=== PATIENT | male | born 1940 | race Caucasian/White ===

== ENCOUNTER 2018-08-09 08:50 | Emergency (ER) | payer MEDICARE ==
--- NOTE | 2018-08-09 09:04 | EDM.PDOC ---
ED HPI GENERAL MEDICAL PROBLEM - General Chief Complaint: Head Injury Stated Complaint: FELL IN PARKING LOT Time Seen by Provider: 08/09/18 11:04 - History of Present Illness INITIAL COMMENTS - FREE TEXT/NARRATIVE: HISTORY AND PHYSICAL: History of present illness: Patient's a 77-year-old male history of dementia who presents status post fall which he missed a step falling and striking his head and face he sustained multiple abrasions and contusions there is no loss consciousness he denies any head or neck pain although exam is somewhat limited. Review of systems: As per history of present illness and below otherwise all systems reviewed and negative. Past medical history: As per history of present illness and as reviewed below otherwise noncontributory. Surgical history: As per history of present illness and as reviewed below otherwise noncontributory. Social history: No reported history of drug or alcohol abuse. Family history: As per history of present illness and as reviewed below otherwise noncontributory. Physical exam: HEENT: Patient has multiple abrasions and contusions of his midface., normocephalic, pupils reactive, negative for conjunctival pallor or scleral icterus, mucous membranes moist, throat clear, neck supple, nontender, trachea midline. Lungs: Clear to auscultation, breath sounds equal bilaterally, chest nontender. Heart: S1S2, regular, negative for clicks, rubs, or JVD. Abdomen: Soft, nondistended, nontender. Negative for masses or hepatosplenomegaly. Negative for costovertebral tenderness. Pelvis: Stable nontender. Genitourinary: Deferred. Rectal: Deferred. Extremities: Atraumatic, negative for cords or calf pain. Neurovascular unremarkable. Neuro: Awake, alert, follows commands and moves all extremities limited procedure nonfocal exam. Diagnostics: CBC CMP troponin PT/INR chest x-ray CT brain C-spine and facial bones Therapeutics: None Impression: #1 history of Alzheimer's disease #2 observation status post fall #3 head trauma with facial abrasions/contusions Definitive disposition and diagnosis as appropriate pending reevaluation and review of above. - Related Data Allergies Allergy/AdvReac Type Severity Reaction Status Date / Time codeine Allergy Other Verified 08/09/18 09:05 Home Meds: Home Meds . [No Known Home Meds] 08/09/18 [History] ED ROS GENERAL - Review of Systems Review Of Systems: ROS reveals no pertinent complaints other than HPI. ED EXAM, GENERAL - Physical Exam Exam: See Below (The dictation) Course - Vital Signs Text/Narrative:: I had a lengthy discussion with patient and family under the circumstances it'd been decided that no significant medical treatment or intervention is desired at this point or in the near future they are working with social service for placement and dementia care. Last Recorded V/S: Last Vital Signs Temp 36.3 C 08/09/18 08:59 Pulse 117 H 08/09/18 08:59 Resp 18 08/09/18 08:59 BP 125/71 08/09/18 08:59 Pulse Ox 94 L 08/09/18 08:59 - Orders/Labs/Meds Orders: Active Orders 24 hr Category Date Time Status Cardiac Monitoring [RC] . DIRECTED Care 08/09/18 09:05 Active EKG 12 Lead [EKG Documentation Completion] [RC] STAT Care 08/09/18 09:03 Active Max Facial Sinus wo Cont [CT] Stat Exams 08/09/18 09:03 Taken UA RFX BRODY AND CULT IF INDIC [URIN] Stat Lab 08/09/18 09:03 Ordered Labs: Laboratory Tests 08/09/18 08/09/18 08/09/18 Range/Units 09:00 09:00 09:00 WBC 4.47 (4.0-11.0) K/uL RBC 4.58 (4.50-5.90) M/uL Hgb 14.2 (13.0-17.0) g/dL Hct 40.7 (38.0-50.0) % MCV 88.9 (80.0-98.0) fL MCH 31.0 (27.0-32.0) pg MCHC 34.9 (31.0-37.0) g/dL RDW Std Deviation 53.9 (28.0-62.0) fl RDW Coeff of Aura 17 H (11.0-15.0) % Plt Count 72 L (150-400) K/uL MPV 8.80 (7.40-12.00) fL Neut % (Auto) 44.3 L (48.0-80.0) % Lymph % (Auto) 36.9 (16.0-40.0) % [place] % (Auto) 12.5 (0.0-15.0) % Eos % (Auto) 3.8 (0.0-7.0) % Baso % (Auto) 2.5 H (0.0-1.5) % Neut # (Auto) 2.0 (1.4-5.7) K/uL Lymph # (Auto) 1.7 (0.6-2.4) K/uL [place] # (Auto) 0.6 (0.0-0.8) K/uL Eos # (Auto) 0.2 (0.0-0.7) K/uL Baso # (Auto) 0.1 (0.0-0.1) K/uL Nucleated RBC % 0.0 /100WBC Nucleated RBCs # 0 K/uL INR 1.25 Sodium 140 (136-148) mmol/L Potassium 3.7 (3.5-5.1) mmol/L Chloride 104 (98-107) mmol/L Carbon Dioxide 23.7 (21.0-32.0) mmol/L BUN 14 (7.0-18.0) mg/dL Creatinine 1.0 (0.8-1.3) mg/dL Est Cr Clr Drug Dosing 70.78 mL/min Estimated GFR (MDRD) > 60.0 ml/min Glucose 135 H (74-106) mg/dL Calcium 8.8 (8.5-10.1) mg/dL Total Bilirubin 2.0 H (0.2-1.0) mg/dL AST 27 (15-37) IU/L ALT 20 (14-63) IU/L Alkaline Phosphatase 81 (46-116) U/L Troponin I < 0.050 (0.000-0.056) ng/mL Total Protein 6.5 (6.4-8.2) g/dL Albumin 3.1 L (3.4-5.0) g/dL Globulin 3.4 (2.6-4.0) g/dL Albumin/Globulin Ratio 0.9 (0.9-1.6) Departure - Departure Time of Disposition: 11:04 Disposition: Home, Self-Care 01 Condition: Good Clinical Impression: Head injury, Multiple abrasions, Multiple contusions, Hepatic cirrhosis, Pleural cavity effusion, Ascites, Dementia - Discharge Information Referrals: PCP,Unknown [Primary Care Provider] - Forms: ED Department Discharge Additional Instructions: The following information is given to patients seen in the emergency department who are being discharged to home. This information is to outline your options for follow-up care. We provide all patients seen in our emergency department with a follow-up referral. The need for follow-up, as well as the timing and circumstances, are variable depending upon the specifics of your emergency department visit. If you don't have a primary care physician on staff, we will provide you with a referral. We always advise you to contact your personal physician following an emergency department visit to inform them of the circumstance of the visit and for follow-up with them and/or the need for any referrals to a consulting specialist. The emergency department will also refer you to a specialist when appropriate. This referral assures that you have the opportunity for followup care with a specialist. All of these measure are taken in an effort to provide you with optimal care, which includes your followup. Under all circumstances we always encourage you to contact your private physician who remains a resource for coordinating your care. When calling for followup care, please make the office aware that this follow-up is from your recent emergency room visit. If for any reason you are refused follow-up, please contact the [facility] emergency department at and asked to speak to the emergency department charge nurse. Follow-up as discussed regarding social service abrasion care bacitracin as directed follow-up primary medical doctor and return as needed as discussed - My Orders Last 24 Hours: My Active Orders 08/09/18 09:03 EKG 12 Lead [EKG Documentation Completion] [RC] STAT Max Facial Sinus wo Cont [CT] Stat UA RFX BRODY AND CULT IF INDIC [URIN] Stat 08/09/18 09:05 Cardiac Monitoring [RC] . DIRECTED - Assessment/Plan Last 24 Hours: My Active Orders 08/09/18 09:03 EKG 12 Lead [EKG Documentation Completion] [RC] STAT Max Facial Sinus wo Cont [CT] Stat UA RFX BRODY AND CULT IF INDIC [URIN] Stat 08/09/18 09:05 Cardiac Monitoring [RC] . DIRECTED
--- NOTE | 2018-08-09 09:47 | CR ---
EXAMINATION: Portable chest radiograph. HISTORY: Fall. FINDINGS: The trachea is midline. The heart is likely enlarged. There is an implanted health navigator. There is a moderate to large left pleural effusion. No pneumothorax identified. Osseous structures appear osteopenic. IMPRESSION: 1. Cardiomegaly. 2. Moderate to large left pleural effusion.
[2018-08-09 09:48] LABS: CHLORIDE,CL 104 mmol/L (98-107); SODIUM,NA 140 mmol/L (136-148)
--- NOTE | 2018-08-09 09:48 | CT ---
EXAMINATION: Non contrast CT head. Coronal and sagittal reformats. HISTORY: Fall FINDINGS: No evidence of intra or extra axial hemorrhage, mass, midline shift, hydrocephalus or edema. Moderate generalized atrophy and symmetric ventricular prominence. Mild periventricular white matter hypodensities. Likely small area of encephalomalacia within the left cerebellum. No hypoattenuation changes in the major vascular territories to suggest acute infarct. No abnormal intracranial calcifications are detected. Mild vascular calcifications. Paranasal sinuses and mastoid air cells are well aerated without substantial findings. Pituitary fossa appears unremarkable. The calvarium is intact. No evidence of skull fracture. Orbits and globes are symmetric. Small subcutaneous hematoma within the supraorbital region. IMPRESSION: 1. No acute intracranial findings. 2. Generalized atrophy and small vessel ischemic changes. 3. 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 4. Subcutaneous hematoma within the supraorbital region.
--- NOTE | 2018-08-09 09:51 | CT ---
EXAMINATION: CT cervical spine HISTORY: Fall COMPARISON: None TECHNIQUE: Axial CT imaging obtained through the cervical spine without contrast. Coronal and sagittal reconstructions obtained. FINDINGS: The cervical spinal alignment is normal. The vertebral body heights appear maintained. There is no fracture or acute osseous abnormality. Marginal osteophytes are noted. Osteophyte disc complex noted at C3-C4. Mild facet arthritic changes also noted. No cervical lymphadenopathy. Paravertebral soft tissues are normal. Moderate to large left pleural effusion and small right pleural effusion. IMPRESSION: 1. No acute cervical spinal abnormality. 2. Moderate to large left pleural effusion.
--- NOTE | 2018-08-09 10:03 | CT ---
EXAMINATION: CT chest without contrast HISTORY: Fall COMPARISON: Radiograph from the same day TECHNIQUE: Axial CT imaging obtained through the chest without contrast. Coronal and sagittal reconstructions obtained. FINDINGS: There is a small right and large left pleural effusion. There is adjacent atelectasis, otherwise the lungs are clear. The heart is normal in size. No mediastinal or axillary lymphadenopathy. Mildly decreased blood density relative to myocardium. Thoracic aorta is normal caliber. Central airways are clear. Borderline enlarged mainstem pulmonary arteries. Moderate coronary artery calcifications. There is a moderate amount of abdominal ascites. The liver is nodular and contour. Cholelithiasis. The spleen is enlarged. No suspicious osseous abnormalities. IMPRESSION: 1. Large left and small right pleural effusion. 2. Moderate amount of abdominal ascites. 3. Cirrhosis with splenomegaly. 4. Cholelithiasis. 5. Borderline pulmonary artery size suggesting pulmonary artery hypertension. 6. Decreased blood density suggestive of anemia. 7. Moderate coronary artery calcifications.
[2018-08-09] MEDS ORDERED: Bacitracin Oint 1 GM U/D Packet TOP ONE (11:18)
--- NOTE | 2018-08-09 11:44 | CT ---
EXAMINATION: CT facial bones HISTORY: Fall COMPARISON: None TECHNIQUE: Axial CT imaging obtained through the facial bones without contrast. Coronal and sagittal reconstructions obtained. FINDINGS: There is no fracture or acute osseous abnormality. Bone mineralization is normal to mildly osteopenic. Mild degenerative changes within the left temporomandibular joint. The zygomatic arches are intact. Paranasal sinuses are clear. Nasal bones are intact. Pterygoid plates are normal. Maxillary and Mandible are otherwise intact. No air-fluid levels or bony destruction. Orbital cunha are symmetric. Mild leftward deviation of the nasal septum. IMPRESSION: No evidence of an acute facial bone injury.
== END 2018-08-09 11:30 | disposition home or self-care (01) ==
LOC: MW.ED 08:50
DX: S00.83XA Contusion of other part of head, initial encounter (principal); S09.90XA Unspecified injury of head, initial encounter; K74.60 Unspecified cirrhosis of liver; J90 Pleural effusion, not elsewhere classified; R18.8 Other ascites; G30.9 Alzheimer's disease, unspecified; F02.80 Dementia in other diseases classified elsewhere, unspecified severity, without behavioral disturbance, psychotic disturbance, mood disturbance, and anxiety; W10.9XXA Fall (on) (from) unspecified stairs and steps, initial encounter; Z79.899 Other long term (current) drug therapy
CPT/HCPCS: 70450; 70450-26; 70486; 70486-26; 71045; 71045-26; 71250; 71250-26; 72125; 72125-26; 80053; 84484; 85025; 85610; 93005; 99284; 99284-25

== ENCOUNTER 2018-08-15 23:28 | Inpatient (IN) | payer MEDICARE, MEDICAID ==
[2018-08-15] MEDS ORDERED: Sodium Chloride 0.9% 10 ML Syringe FLUSH PRN (23:40)
[2018-08-15] MEDS ORDERED: Sodium Chloride 0.9% 2.5 ML Syringe FLUSH PRN (23:40)
--- NOTE | 2018-08-16 00:07 | EDM.PDOC ---
ED HPI GENERAL MEDICAL PROBLEM - General Chief Complaint: Head Injury Stated Complaint: FALL Time Seen by Provider: 08/16/18 01:10 - History of Present Illness INITIAL COMMENTS - FREE TEXT/NARRATIVE: HISTORY AND PHYSICAL: History of present illness: Patient 69-year-old male history of dementia and liver disease who was seen recently for ascites with associated fall and a large pleural effusion patient' s family states patient is code 3 and had no interest in any aggressive treatment of any sort. He had a syncopal episode tonight in which he fell hit his head and on arrival his only complaint is neck pain for which she did not initially complain. There is no reported chest pain shortness of breath nausea vomiting and no other complaints Review of systems: As per history of present illness and below otherwise all systems reviewed and negative. Past medical history: As per history of present illness and as reviewed below otherwise noncontributory. Surgical history: As per history of present illness and as reviewed below otherwise noncontributory. Social history: No reported history of drug or alcohol abuse. Family history: As per history of present illness and as reviewed below otherwise noncontributory. Physical exam: HEENT: Marked facial bruising from prior trauma, normocephalic, pupils reactive , negative for conjunctival pallor or scleral icterus, mucous membranes moist, throat clear, neck supple, nontender, trachea midline. Lungs: Diminished right sided breath sounds, chest nontender. Heart: S1S2, regular, negative for clicks, rubs, or JVD. Abdomen: Soft, protuberant with positive fluid wave and obvious ascites. Negative for masses or hepatosplenomegaly. Negative for costovertebral tenderness. Pelvis: Stable nontender. Genitourinary: Deferred. Rectal: Deferred. Extremities: Atraumatic, negative for cords or calf pain. Neurovascular unremarkable. Neuro: Awake, follows commands moves all extremities at his baseline per family Limited but grossly nonfocal Diagnostics: CBC CMP troponin PT/INR ammonia level chest x-ray EKG CT brain and C-spine Therapeutics: IV monitor and storage bin tender Impression: #1 syncope #2 fall with head trauma #3 intracranial hemorrhage #4 DNR #5 ascites #6 hepatic cirrhosis #7 pleural effusion Definitive disposition and diagnosis as appropriate pending reevaluation and review of above. head;neck Pain Score (Numeric/FACES): 5 - Related Data Allergies Allergy/AdvReac Type Severity Reaction Status Date / Time codeine Allergy Other Verified 08/16/18 00:08 Home Meds: Home Meds . 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 Respiratory History: Reports: None Gastrointestinal History: Reports: None Genitourinary History: Reports: None Musculoskeletal History: Reports: None Neurological History: Reports: Alzheimers Disease Psychiatric History: Reports: None Endocrine/Metabolic History: Reports: None Hematologic History: Reports: None Immunologic History: Reports: None Oncologic (Cancer) History: Reports: Colon Dermatologic History: Reports: None - Past Surgical History Head Surgeries/Procedures: Reports: None HEENT Surgical History: Reports: None Cardiovascular Surgical History: Reports: None Respiratory Surgical History: Reports: None GI Surgical History: Reports: None Male Surgical History: Reports: None Endocrine Surgical History: Reports: None Neurological Surgical History: Reports: None Musculoskeletal Surgical History: Reports: None Oncologic Surgical History: Reports: None Dermatological Surgical History: Reports: None Social & Family History - Family History Family Medical History: Noncontributory - Caffeine Use Caffeine Use: Reports: None ED ROS GENERAL - Review of Systems Review Of Systems: ROS reveals no pertinent complaints other than HPI. ED EXAM, HEAD INJURY - Physical Exam Exam: See Below (See dictation) Course - Vital Signs Last Recorded V/S: Last Vital Signs Temp 36.5 C 08/15/18 23:28 Pulse 114 H 08/15/18 23:28 Resp 18 08/15/18 23:28 BP 148/50 H 08/15/18 23:28 Pulse Ox 94 L 08/15/18 23:28 - Orders/Labs/Meds Orders: Active Orders 24 hr Category Date Time Status Cardiac Monitoring [RC] . DIRECTED Care 08/15/18 23:40 Active EKG Documentation Completion [RC] STAT Care 08/15/18 23:40 Active Oxygen Therapy [RC] ASDIRECTED Care 08/15/18 23:40 Active Sodium Chloride 0.9% [Saline Flush] Med 08/15/18 23:40 Active 10 ml FLUSH ASDIRECTED PRN Sodium Chloride 0.9% [Saline Flush] Med 08/15/18 23:40 Active 2.5 ml FLUSH ASDIRECTED PRN Saline Lock Insert [OM.PC] Stat Oth 08/15/18 23:40 Ordered Medication Orders Sodium Chloride (Saline Flush) 10 ml FLUSH ASDIRECTED PRN PRN Reason: Keep Vein Open Sodium Chloride (Saline Flush) 2.5 ml FLUSH ASDIRECTED PRN PRN Reason: Keep Vein Open Labs: Laboratory Tests 08/15/18 08/15/18 08/15/18 Range/Units 00:20 23:45 23:45 WBC 4.30 (4.0-11.0) K/uL RBC 4.40 L (4.50-5.90) M/uL Hgb 13.8 (13.0-17.0) g/dL Hct 39.3 (38.0-50.0) % MCV 89.3 (80.0-98.0) fL MCH 31.4 (27.0-32.0) pg MCHC 35.1 (31.0-37.0) g/dL RDW Std Deviation 52.0 (28.0-62.0) fl RDW Coeff of Aura 16 H (11.0-15.0) % Plt Count 82 L (150-400) K/uL MPV 9.30 (7.40-12.00) fL Neut % (Auto) 61.7 (48.0-80.0) % Lymph % (Auto) 23.3 (16.0-40.0) % [place] % (Auto) 11.2 (0.0-15.0) % Eos % (Auto) 1.9 (0.0-7.0) % Baso % (Auto) 1.9 H (0.0-1.5) % Neut # (Auto) 2.7 (1.4-5.7) K/uL Lymph # (Auto) 1.0 (0.6-2.4) K/uL [place] # (Auto) 0.5 (0.0-0.8) K/uL Eos # (Auto) 0.1 (0.0-0.7) K/uL Baso # (Auto) 0.1 (0.0-0.1) K/uL INR 1.23 Sodium (136-148) mmol/L Potassium (3.5-5.1) mmol/L Chloride (98-107) mmol/L Carbon Dioxide (21.0-32.0) mmol/L BUN (7.0-18.0) mg/dL Creatinine (0.8-1.3) mg/dL Est Cr Clr Drug Dosing Estimated GFR (MDRD) ml/min Glucose (74-106) mg/dL Calcium (8.5-10.1) mg/dL Total Bilirubin (0.2-1.0) mg/dL AST (15-37) IU/L ALT (14-63) IU/L Alkaline Phosphatase (46-116) U/L Troponin I (0.000-0.056) ng/mL Total Protein (6.4-8.2) g/dL Albumin (3.4-5.0) g/dL Globulin (2.6-4.0) g/dL Albumin/Globulin Ratio (0.9-1.6) Urine Color YELLOW Urine Appearance CLEAR Urine pH 5.5 (5.0-8.0) Ur Specific [place] >= 1.030 (1.001-1.035) Urine Protein NEGATIVE (NEGATIVE) mg/dL Urine Glucose (UA) NEGATIVE (NEGATIVE) mg/dL Urine Ketones NEGATIVE (NEGATIVE) mg/dL Urine Occult Blood NEGATIVE (NEGATIVE) Urine Nitrite NEGATIVE (NEGATIVE) Urine Bilirubin SMALL H (NEGATIVE) Urine Ictotest NEGATIVE Urine Urobilinogen 1.0 (<2.0) EU/dL Ur Leukocyte Esterase NEGATIVE (NEGATIVE) 08/15/18 Range/Units 23:45 WBC (4.0-11.0) K/uL RBC (4.50-5.90) M/uL Hgb (13.0-17.0) g/dL Hct (38.0-50.0) % MCV (80.0-98.0) fL MCH (27.0-32.0) pg MCHC (31.0-37.0) g/dL RDW Std Deviation (28.0-62.0) fl RDW Coeff of Aura (11.0-15.0) % Plt Count (150-400) K/uL MPV (7.40-12.00) fL Neut % (Auto) (48.0-80.0) % Lymph % (Auto) (16.0-40.0) % [place] % (Auto) (0.0-15.0) % Eos % (Auto) (0.0-7.0) % Baso % (Auto) (0.0-1.5) % Neut # (Auto) (1.4-5.7) K/uL Lymph # (Auto) (0.6-2.4) K/uL [place] # (Auto) (0.0-0.8) K/uL Eos # (Auto) (0.0-0.7) K/uL Baso # (Auto) (0.0-0.1) K/uL INR Sodium 139 (136-148) mmol/L Potassium 4.1 (3.5-5.1) mmol/L Chloride 104 (98-107) mmol/L Carbon Dioxide 24.1 (21.0-32.0) mmol/L BUN 16 (7.0-18.0) mg/dL Creatinine 0.9 (0.8-1.3) mg/dL Est Cr Clr Drug Dosing TNP Estimated GFR (MDRD) > 60.0 ml/min Glucose 151 H (74-106) mg/dL Calcium 8.6 (8.5-10.1) mg/dL Total Bilirubin 2.8 H (0.2-1.0) mg/dL AST 24 (15-37) IU/L ALT 22 (14-63) IU/L Alkaline Phosphatase 94 (46-116) U/L Troponin I < 0.050 (0.000-0.056) ng/mL Total Protein 6.9 (6.4-8.2) g/dL Albumin 3.3 L (3.4-5.0) g/dL Globulin 3.6 (2.6-4.0) g/dL Albumin/Globulin Ratio 0.9 (0.9-1.6) Urine Color Urine Appearance Urine pH (5.0-8.0) Ur Specific [place] (1.001-1.035) Urine Protein (NEGATIVE) mg/dL Urine Glucose (UA) (NEGATIVE) mg/dL Urine Ketones (NEGATIVE) mg/dL Urine Occult Blood (NEGATIVE) Urine Nitrite (NEGATIVE) Urine Bilirubin (NEGATIVE) Urine Ictotest Urine Urobilinogen (<2.0) EU/dL Ur Leukocyte Esterase (NEGATIVE) Meds: Medications Generic Name Dose Route Start Last Admin Trade Name Freq PRN Reason Stop Dose Admin Sodium Chloride 10 ml 08/15/18 23:40 Saline Flush FLUSH ASDIRECTED PRN Keep Vein Open Sodium Chloride 2.5 ml 08/15/18 23:40 Saline Flush FLUSH ASDIRECTED PRN Keep Vein Open Departure - Departure Time of Disposition: 01:09 Disposition: Refer to Observation Condition: Good Clinical Impression: Subarachnoid hemorrhage, Dementia, Hepatic cirrhosis, Pleural cavity effusion, Ascites, DNR (do not resuscitate) - Discharge Information Referrals: PCP,None [Primary Care Provider] - Forms: ED Department Discharge - My Orders Last 24 Hours: My Active Orders 08/15/18 23:40 Cardiac Monitoring [RC] . DIRECTED EKG Documentation Completion [RC] STAT Oxygen Therapy [RC] ASDIRECTED Sodium Chloride 0.9% [Saline Flush] 10 ml FLUSH ASDIRECTED PRN Sodium Chloride 0.9% [Saline Flush] 2.5 ml FLUSH ASDIRECTED PRN Saline Lock Insert [OM.PC] Stat - Assessment/Plan Last 24 Hours: My Active Orders 08/15/18 23:40 Cardiac Monitoring [RC] . DIRECTED EKG Documentation Completion [RC] STAT Oxygen Therapy [RC] ASDIRECTED Sodium Chloride 0.9% [Saline Flush] 10 ml FLUSH ASDIRECTED PRN Sodium Chloride 0.9% [Saline Flush] 2.5 ml FLUSH ASDIRECTED PRN Saline Lock Insert [OM.PC] Stat
--- NOTE | 2018-08-16 00:19 | CR ---
Indication: Fall. Pain Technique: Chest 1 view Comparison: 08/09/2018. Findings/Impression: Cardiovascular and mediastinum: Persistent partial obscuration of the cardiac silhouette which appears grossly stable. Lungs and pleural space: A persistent left pleural effusion with underlying atelectasis or consolidation. Bones and soft tissues: No significant change. Dictated by Randy Ortez MD @ 08/16/2018 12:15:57 AM Dictated by: Randy Ortez MD @ 08/16/2018 00:16:45 (Electronically Signed)
--- NOTE | 2018-08-16 00:24 | CT ---
INDICATION: Pain after fall COMPARISON: 08/09/2018 TECHNIQUE: CT examination of the head was performed with 3 mm thick axial sections without intravenous contrast. Images were obtained from the vertex of the skull through the skull base, and I examined the images with the brain and bone windows. Please note that all CT scans at this facility use dose modulation, iterative reconstruction, and/or weight-based dosing when appropriate to reduce radiation dose to as low as reasonably achievable. FINDINGS: There is decreased swelling in the right frontal scalp, with near complete resolution of the previously seen subperiosteal hematoma and soft tissue contusion. There are new small areas of subarachnoid hemorrhage located in a high right medial parietal sulcus, sulci in the medial right high posterior parietal region, and a sulcus in the left medial frontal region. There is a new small rounded area of subarachnoid hemorrhage located in the lateral aspect of the left sylvian cistern inferiorly. There new small areas of intraparenchymal hemorrhage in the subcortical white matter in the medial high left posterior parietal region and in the high medial right mid parietal region. There is no sign of any mass effect produced by these hemorrhages. There is no sign of intraventricular hemorrhage. Again seen is moderate dilatation of the ventricles and sulci representing moderate, age-appropriate atrophy. Again seen is an old lacunar infarct in the anterior limb of the left internal capsule. 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 The visualized portions of the orbits are normal in appearance. The visualized paranasal sinuses and mastoids are clear. The osseous structures are normal in their appearance with no sign of abnormality in the skull base or calvarium. IMPRESSION: Multiple new small areas of subarachnoid hemorrhage scattered over both cerebral hemispheres as described above. These are consistent with tearing of bridging veins. Moderate sized rounded acute subarachnoid hemorrhage located in the anterior inferior left sylvian cistern. Two punctate areas of subcortical intraparenchymal hemorrhage in the medial parietal lobes, in the posterior left parietal lobe and in the mid right parietal lobe, consistent with diffuse axonal injury. No sign of any mass effect from these hemorrhages. No sign of any midline shift. Stable moderate, age-appropriate atrophy. Old infarcts again seen in the anterior limb of the left internal capsule and in the PICA region of the left cerebellar hemisphere. Decreased swelling of the right frontal scalp with near complete resolution of the previously seen subperiosteal hematoma. Please note that all CT scans at this facility use dose modulation, iterative reconstruction, and/or weight-based dosing when appropriate to reduce radiation dose to as low as reasonably achievable. Dictated by Griffin Mills MD @ Aug 16 2018 12:07AM Signed by Dr. Griffin Mills @ Aug 16 2018 12:23AM
--- NOTE | 2018-08-16 00:35 | CT ---
INDICATION: Pain after fall. COMPARISON: CT of the cervical spine from 08/09/2018 TECHNIQUE: CT examination of the cervical spine is performed without contrast using spiral technique. 2 mm thick axial, sagittal and coronal reconstructions were made. Please note that all CT scans at this facility use dose modulation, iterative reconstruction, and/or weight-based dosing when appropriate to reduce radiation dose to as low as reasonably achievable. FINDINGS: : There is no change in grade 1 posterior subluxation of C3 on C4 with 2 millimeters of displacement. There is no change in moderate C3-4 disc degenerative disease. There is no change in moderate right greater than left lateral disc bulging with posterior osteophytic ridging, associated with severe right and moderate left foraminal stenosis. The rest of the cervical vertebral bodies remain in anatomic alignment. There is no change in mild disc degenerative disease at C4-5, C5-6, and C6-7. Again seen is partial fusion at C6-7 with absence of the disc space anteriorly and posteriorly. Heavy anterior ligamentous ossification at C5-6 probably results in fusion as well. There is no sign of any cervical vertebral body or posterior element fracture. Again seen is mild right C2-3 facet arthropathy. The C2-3 disc space is normal in height. There is no sign of prevertebral soft tissue swelling. The airway structures are normal in appearance. The visualized skull base is normal in appearance. Brain detail is extremely limited by the use of bone technique, but no gross abnormality is seen. Again seen is prominent opacification of the left apex consistent with the stable moderate pleural effusion seen on today`s chest radiograph. The right apex is clear. IMPRESSION: No sign of acute osseous injury to the cervical spine. Stable minimal posterior subluxation of C3 on C4 with degenerative changes as described above. Stable fusion of C6-7 and possible fusion of C5-6. Continued prominent opacification of the left apex consistent with a continued moderate pleural effusion. Please note that all CT scans at this facility use dose modulation, iterative reconstruction, and/or weight-based dosing when appropriate to reduce radiation dose to as low as reasonably achievable. Dictated by Griffin Mills MD @ Aug 16 2018 12:23AM Signed by Dr. Griffin Mills @ Aug 16 2018 12:34AM
[2018-08-16 00:50] LABS: CHLORIDE,CL 104 mmol/L (98-107); SODIUM,NA 139 mmol/L (136-148)
[2018-08-16 06:25] LABS: CHLORIDE,CL 107 mmol/L (98-107); SODIUM,NA 140 mmol/L (136-148)
[2018-08-16] MEDS ORDERED: Ondansetron 4 MG/2 ML SDV IVPUSH PRN (08:21)
[2018-08-16] MEDS ORDERED: Acetaminophen 325 MG Tab PO PRN (08:21)
--- NOTE | 2018-08-16 08:23 | PCM.HP ---
H&P History of Present Illness - General Date of Service: 08/16/18 Admit Problem/Dx: Admission Diagnosis/Problem Admission Diagnosis/Problem Subarachnoid hemorrhage Source of Information: Patient, Family (Son at bedside on seconds rounds) History Limitations: Reports: Altered Mental Status (denies medical history, though he has extensive medical history, otherwise alert and oriented.) - History of Present Illness Initial Comments - Free Text/Narative: This 77 year old male with pmh of dementia and cirrhosis presented with family after falling at home in his bedroom and hitting his head. The son reports he was helped to bed and then 20 minutes later he got up by himself and they heard he had fallen. He hit is head so hard there was a hole in the wall. The son reports he was normal, as he knows, up until 10 days to 2 weeks ago and since then he continually started to decline. He has been falling more and reported him having a possible cold with a cough. Otherwise they are unless of a fall 2 weeks ago, though they did notice broken tile in the kitchen and wondered if he had fallen, but didn't notice any bruising. He has fallen a few other times in the past 10 days, he did fall out of his grandsons truck and ended up hitting his face and has extensive facial bruising and abrasions, he was seen in the ED at that time, head CT did not reveal any cerebral hemorrhages at that time. Isaiah, this morning is alert and oriented x3, but is unable to help with medical history. He denies any liver disease. He reports he drank quite heavily , but quit a few years ago, he also smoked but quit that about 5 years ago as well. The son reports he is a DNR/DNI and does not want any medications either. He reports on the drive here he was reminding them that he didn't want anything done. In the ED No leukocytosis noted, Platelets noted to be 82,000. BMP WNL, bilirubin 2.8. VS stable, afebrile. Head CT revealed multiple new small areas of subarachnoid hemorrhage scattered over both hemispheres, consistent with tearing of bridging veins. Moderated sized subarachnoid hemorrhage location in the anterior inferior left sylvian cistern. No mass effect noted, no midline shift. Cervical neck CT obtained as well revealing no acute osseous injury. Moderate Pleural effusion noted in L lung. He will be admitted inpatient due to inability to care for himself and frequent falls at home with subsequent subarachnoid hemorrhage. head;neck Pain Score (Numeric/FACES): 5 - Related Data Allergies/Adverse Reactions: Allergies Allergy/AdvReac Type Severity Reaction Status Date / Time codeine Allergy Other Verified 08/16/18 00:08 Home Medications: Home Meds . 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 Respiratory History: Reports: None Gastrointestinal History: Reports: Cirrhosis Genitourinary History: Reports: None. Denies: Chronic Renal Insuffiency Musculoskeletal History: Reports: None Neurological History: Reports: Alzheimers Disease Psychiatric History: Reports: None Endocrine/Metabolic History: Reports: None. Denies: Diabetes, Type II Hematologic History: Reports: None Immunologic History: Reports: None Oncologic (Cancer) History: Reports: Colon Dermatologic History: Reports: None - Past Surgical History Head Surgeries/Procedures: Reports: None HEENT Surgical History: Reports: None Cardiovascular Surgical History: Reports: None Respiratory Surgical History: Reports: None GI Surgical History: Reports: None Male Surgical History: Reports: None Endocrine Surgical History: Reports: None Neurological Surgical History: Reports: None Musculoskeletal Surgical History: Reports: None Oncologic Surgical History: Reports: None Dermatological Surgical History: Reports: None Social & Family History - Family History Family Medical History: Noncontributory - Tobacco Use Smoking Status *Q: Former Smoker Years of Tobacco use: 40 Used Tobacco, but Quit: Yes Month/Year Tobacco Last Used: 13 - Caffeine Use Caffeine Use: Reports: Coffee, Soda - Recreational Drug Use Recreational Drug Use: No - Living Situation & Occupation Living situation: Reports: with Family Occupation: Retired H&P Review of Systems - Review of Systems: Review Of Systems: See Below Free Text/Narrative: Isaiah denies all concerns. No pain, and no longer any neck pain. General: Reports: No Symptoms. Denies: Fever, Chills, Malaise Pulmonary: Reports: No Symptoms. Denies: Shortness of Breath Cardiovascular: Reports: No Symptoms. Denies: Chest Pain Gastrointestinal: Reports: No Symptoms. Denies: Abdominal Pain, Black Stool, Bloody Stool, Nausea, Vomiting Genitourinary: Reports: No Symptoms. Denies: Dysuria, Frequency Musculoskeletal: Reports: No Symptoms Skin: Reports: No Symptoms Psychiatric: Reports: No Symptoms Neurological: Reports: No Symptoms Hematologic/Lymphatic: Reports: No Symptoms Immunologic: Reports: No Symptoms Exam - Exam Exam: See Below - Vital Signs Vital Signs: Last Vital Signs Temp 98.8 F 08/16/18 08:00 Pulse 93 08/16/18 08:00 Resp 16 08/16/18 08:00 BP 113/54 L 08/16/18 08:00 Pulse Ox 93 L 08/16/18 08:00 Weight: 88.995 kg - Exam General: Alert, Oriented, Cooperative Lungs: Normal Respiratory Effort, Decreased Breath Sounds, Crackles (L base) Cardiovascular: Regular Rate, Regular Rhythm, Normal S1, Normal S2 GI/Abdominal Exam: Normal Bowel Sounds, Soft, Non-Tender, Other (mild ascites) Extremities: Normal Inspection, Normal Range of Motion, Non-Tender, Pedal Edema (+2 pitting edema to BLE) Neuro Extensive - Mental Status: Alert, Oriented x3, Normal Mood/Affect, Memory Loss-Remote Events. No: Memory Intact Neuro Extensive - Motor, Sensory, Reflexes: CN II-XII Intact Psychiatric: Alert, Normal Affect, Normal Mood - Patient Data Lab Results Last 24 hrs: Laboratory Results - last 24 hr 08/15/18 08/15/18 08/15/18 Range/Units 00:20 23:45 23:45 WBC 4.30 (4.0-11.0) K/uL RBC 4.40 L (4.50-5.90) M/uL Hgb 13.8 (13.0-17.0) g/dL Hct 39.3 (38.0-50.0) % MCV 89.3 (80.0-98.0) fL MCH 31.4 (27.0-32.0) pg MCHC 35.1 (31.0-37.0) g/dL RDW Std Deviation 52.0 (28.0-62.0) fl RDW Coeff of Aura 16 H (11.0-15.0) % Plt Count 82 L (150-400) K/uL MPV 9.30 (7.40-12.00) fL Neut % (Auto) 61.7 (48.0-80.0) % Lymph % (Auto) 23.3 (16.0-40.0) % Shelby % (Auto) 11.2 (0.0-15.0) % Eos % (Auto) 1.9 (0.0-7.0) % Baso % (Auto) 1.9 H (0.0-1.5) % Neut # (Auto) 2.7 (1.4-5.7) K/uL Lymph # (Auto) 1.0 (0.6-2.4) K/uL Shelby # (Auto) 0.5 (0.0-0.8) K/uL Eos # (Auto) 0.1 (0.0-0.7) K/uL Baso # (Auto) 0.1 (0.0-0.1) K/uL Nucleated RBC % /100WBC Nucleated RBCs # K/uL INR 1.23 Sodium (136-148) mmol/L Potassium (3.5-5.1) mmol/L Chloride (98-107) mmol/L Carbon Dioxide (21.0-32.0) mmol/L BUN (7.0-18.0) mg/dL Creatinine (0.8-1.3) mg/dL Est Cr Clr Drug Dosing Estimated GFR (MDRD) ml/min Glucose (74-106) mg/dL Calcium (8.5-10.1) mg/dL Total Bilirubin (0.2-1.0) mg/dL AST (15-37) IU/L ALT (14-63) IU/L Alkaline Phosphatase (46-116) U/L Troponin I (0.000-0.056) ng/mL Total Protein (6.4-8.2) g/dL Albumin (3.4-5.0) g/dL Globulin (2.6-4.0) g/dL Albumin/Globulin Ratio (0.9-1.6) Urine Color YELLOW Urine Appearance CLEAR Urine pH 5.5 (5.0-8.0) Ur Specific Baden >= 1.030 (1.001-1.035) Urine Protein NEGATIVE (NEGATIVE) mg/dL Urine Glucose (UA) NEGATIVE (NEGATIVE) mg/dL Urine Ketones NEGATIVE (NEGATIVE) mg/dL Urine Occult Blood NEGATIVE (NEGATIVE) Urine Nitrite NEGATIVE (NEGATIVE) Urine Bilirubin SMALL H (NEGATIVE) Urine Ictotest NEGATIVE Urine Urobilinogen 1.0 (<2.0) EU/dL Ur Leukocyte Esterase NEGATIVE (NEGATIVE) 08/15/18 08/16/18 08/16/18 Range/Units 23:45 05:31 05:31 WBC 3.13 L (4.0-11.0) K/uL RBC 3.77 L (4.50-5.90) M/uL Hgb 11.5 L (13.0-17.0) g/dL Hct 33.9 L (38.0-50.0) % MCV 89.9 (80.0-98.0) fL MCH 30.5 (27.0-32.0) pg MCHC 33.9 (31.0-37.0) g/dL RDW Std Deviation 54.3 (28.0-62.0) fl RDW Coeff of Aura 17 H (11.0-15.0) % Plt Count 57 L (150-400) K/uL MPV 9.30 (7.40-12.00) fL Neut % (Auto) 51.7 (48.0-80.0) % Lymph % (Auto) 32.9 (16.0-40.0) % Shelby % (Auto) 10.9 (0.0-15.0) % Eos % (Auto) 2.9 (0.0-7.0) % Baso % (Auto) 1.6 H (0.0-1.5) % Neut # (Auto) 1.6 (1.4-5.7) K/uL Lymph # (Auto) 1.0 (0.6-2.4) K/uL Shelby # (Auto) 0.3 (0.0-0.8) K/uL Eos # (Auto) 0.1 (0.0-0.7) K/uL Baso # (Auto) 0.1 (0.0-0.1) K/uL Nucleated RBC % 0.0 /100WBC Nucleated RBCs # 0 K/uL INR Sodium 139 140 (136-148) mmol/L Potassium 4.1 3.9 (3.5-5.1) mmol/L Chloride 104 107 (98-107) mmol/L Carbon Dioxide 24.1 25.1 (21.0-32.0) mmol/L BUN 16 13 (7.0-18.0) mg/dL Creatinine 0.9 0.7 L (0.8-1.3) mg/dL Est Cr Clr Drug Dosing TNP 101.12 Estimated GFR (MDRD) > 60.0 > 60.0 ml/min Glucose 151 H 129 H (74-106) mg/dL Calcium 8.6 8.3 L (8.5-10.1) mg/dL Total Bilirubin 2.8 H (0.2-1.0) mg/dL AST 24 (15-37) IU/L ALT 22 (14-63) IU/L Alkaline Phosphatase 94 (46-116) U/L Troponin I < 0.050 (0.000-0.056) ng/mL Total Protein 6.9 (6.4-8.2) g/dL Albumin 3.3 L (3.4-5.0) g/dL Globulin 3.6 (2.6-4.0) g/dL Albumin/Globulin Ratio 0.9 (0.9-1.6) Urine Color Urine Appearance Urine pH (5.0-8.0) Ur Specific Baden (1.001-1.035) Urine Protein (NEGATIVE) mg/dL Urine Glucose (UA) (NEGATIVE) mg/dL Urine Ketones (NEGATIVE) mg/dL Urine Occult Blood (NEGATIVE) Urine Nitrite (NEGATIVE) Urine Bilirubin (NEGATIVE) Urine Ictotest Urine Urobilinogen (<2.0) EU/dL Ur Leukocyte Esterase (NEGATIVE) Result Diagrams: 08/16/18 05:31 08/16/18 05:31 - Problem List (1) Subarachnoid hemorrhage SNOMED Code(s): 657219667 ICD Code: I60.9 - NONTRAUMATIC SUBARACHNOID HEMORRHAGE, UNSPECIFIED Status : Acute Current Visit: Yes (2) Falls SNOMED Code(s): 6273022, 018746149 ICD Code: W19.XXXA - UNSPECIFIED FALL, INITIAL ENCOUNTER Status: Acute Current Visit: Yes Qualifiers: Encounter type: subsequent encounter Qualified Code(s): W19.XXXD - Unspecified fall, subsequent encounter (3) Multiple abrasions SNOMED Code(s): 283425114, 907168711 ICD Code: T07.XXXA - UNSPECIFIED MULTIPLE INJURIES, INITIAL ENCOUNTER Status: Acute Current Visit: No (4) Ascites SNOMED Code(s): 472249490 ICD Code: R18.8 - OTHER ASCITES Status: Chronic Current Visit: Yes Qualifiers: Ascites type: due to alcoholic cirrhosis Qualified Code(s): K70.31 - Alcoholic cirrhosis of liver with ascites (5) Hepatic cirrhosis SNOMED Code(s): 17211200 ICD Code: K74.60 - UNSPECIFIED CIRRHOSIS OF LIVER Status: Chronic Current Visit: Yes Qualifiers: Hepatic cirrhosis type: alcoholic cirrhosis (6) Palliative care status SNOMED Code(s): 032045695 ICD Code: Z51.5 - ENCOUNTER FOR PALLIATIVE CARE Status: Acute Current Visit: Yes Problem List Initiated/Reviewed/Updated: Yes Orders Last 24hrs: Active Orders 24 hr Category Date Time Status Patient Status [ADT] Stat ADT 08/16/18 01:17 Active Antiembolic Devices [RC] PER UNIT ROUTINE Care 08/16/18 08:22 Ordered Cardiac Monitoring [RC] . DIRECTED Care 08/15/18 23:40 Active EKG Documentation Completion [RC] STAT Care 08/15/18 23:40 Active Intake and Output [RC] QSHIFT Care 08/16/18 08:22 Ordered May Shower [RC] ASDIRECTED Care 08/16/18 08:21 Ordered Oxygen Therapy [RC] ASDIRECTED Care 08/15/18 23:40 Active Oxygen Therapy [RC] PRN Care 08/16/18 08:21 Ordered Up With Assistance [RC] ASDIRECTED Care 08/16/18 08:21 Ordered VTE/DVT Education [RC] PER UNIT ROUTINE Care 08/16/18 08:21 Ordered Vital Signs [RC] Q4H Care 08/16/18 08:21 Ordered Consult to Occupational Therapy [OT Evaluation and Cons 08/16/18 08:21 Ordered Treatment] [CONS] Routine PT Evaluation and Treatment [CONS] Routine Cons 08/16/18 08:21 Ordered Regular Diet [DIET] Diet 08/16/18 Breakfast Active Acetaminophen [Tylenol] Med 08/16/18 08:21 Ordered 650 mg PO Q4H PRN Ondansetron [Zofran] Med 08/16/18 08:21 Ordered 4 mg IVPUSH Q4H PRN Sodium Chloride 0.9% [Saline Flush] Med 08/15/18 23:40 Active 10 ml FLUSH ASDIRECTED PRN Sodium Chloride 0.9% [Saline Flush] Med 08/15/18 23:40 Active 2.5 ml FLUSH ASDIRECTED PRN Saline Lock Insert [OM.PC] Stat Oth 08/15/18 23:40 Ordered Sequential Compression Device [OM.PC] Per Unit Routine Oth 08/16/18 08:22 Ordered Resuscitation Status Routine Resus Stat 08/16/18 08:21 Ordered Medication Orders Sodium Chloride (Saline Flush) 10 ml FLUSH ASDIRECTED PRN PRN Reason: Keep Vein Open Last Admin: 08/16/18 01:55 Dose: 10 ml Sodium Chloride (Saline Flush) 2.5 ml FLUSH ASDIRECTED PRN PRN Reason: Keep Vein Open Last Admin: 08/16/18 01:55 Dose: 2.5 ml Assessment/Plan Comment:: This 77 year old male admitted with falls and subarachnoid hemorrhage 1. Subarachnoid hemorrhage: Patient and family want no aggressive measures, including blood or platelet transfusions. Monitor and palliative treatment. 2. Falls, deconditioning: PT/OT to evaluate and treat, family looking at placement in SNF to help with strength. 3. Cirrhosis: mild ascites noted, L pleural effusion. Denies wanting any type of treatment, continue palliative treatment. Dispo: Pending placement
--- NOTE | 2018-08-17 08:33 | PCM.PN ---
<Daya Mayer M - Last Filed: 08/17/18 10:44> - General Info Date of Service: 08/17/18 Admission Dx/Problem (Free Text): Admission Diagnosis/Problem Admission Diagnosis/Problem Subarachnoid hemorrhage Subjective Update: Reports he feels good today, no complaints. NO chest pain or shortness of breath. Functional Status: Reports: Pain Controlled, Tolerating Diet, Ambulating (with assistance) - Review of Systems General: Reports: No Symptoms. Denies: Fever, Weakness, Fatigue HEENT: Reports: No Symptoms Pulmonary: Reports: No Symptoms. Denies: Shortness of Breath, Cough Cardiovascular: Reports: No Symptoms. Denies: Chest Pain, Palpitations Gastrointestinal: Reports: No Symptoms. Denies: Abdominal Pain, Nausea, Vomiting Musculoskeletal: Reports: No Symptoms. Denies: Neck Pain Skin: Reports: No Symptoms Neurological: Reports: No Symptoms Psychiatric: Reports: No Symptoms - Patient Data Vitals - Most Recent: Last Vital Signs Temp 97.5 F 08/17/18 07:48 Pulse 84 08/17/18 07:48 Resp 16 08/17/18 07:48 BP 111/56 L 08/17/18 07:48 Pulse Ox 93 L 08/17/18 07:48 Weight - Most Recent: 88.995 kg I&O - Last 24 Hours: Intake & Output 08/16/18 08/17/18 08/17/18 22:59 06:59 14:59 Intake Total 840 240 Output Total 500 500 Balance 340 -260 Med Orders - Current: Current Medications Acetaminophen (Tylenol) 650 mg PO Q4H PRN PRN Reason: Pain (mild 1-3) Ondansetron HCl (Zofran) 4 mg IVPUSH Q4H PRN PRN Reason: Nausea Sodium Chloride (Saline Flush) 10 ml FLUSH ASDIRECTED PRN PRN Reason: Keep Vein Open Last Admin: 08/16/18 01:55 Dose: 10 ml Sodium Chloride (Saline Flush) 2.5 ml FLUSH ASDIRECTED PRN PRN Reason: Keep Vein Open Last Admin: 08/16/18 01:55 Dose: 2.5 ml - Exam General: Alert, Oriented, Cooperative, No Acute Distress Lungs: Clear to Auscultation, Normal Respiratory Effort Cardiovascular: Regular Rate, Regular Rhythm GI/Abdominal Exam: Normal Bowel Sounds, Soft, Non-Tender Extremities: Normal Inspection, Normal Range of Motion, Non-Tender, No Pedal Edema Skin: Other (bruising to face with abrasions. Bruising to bilateral limbs with abrasion, from previous falls at home. ) Neurological: No New Focal Deficit Psy/Mental Status: Alert, Normal Affect, Normal Mood - Problem List & Annotations (1) Subarachnoid hemorrhage SNOMED Code(s): 452531995 Code(s): I60.9 - NONTRAUMATIC SUBARACHNOID HEMORRHAGE, UNSPECIFIED Status: Acute Current Visit: Yes (2) Falls SNOMED Code(s): 4202853, 997399898 Code(s): W19.XXXA - UNSPECIFIED FALL, INITIAL ENCOUNTER Status: Acute Current Visit: Yes Qualifiers: Encounter type: subsequent encounter Qualified Code(s): W19.XXXD - Unspecified fall, subsequent encounter (3) Multiple abrasions SNOMED Code(s): 396446562, 009979836 Code(s): T07.XXXA - UNSPECIFIED MULTIPLE INJURIES, INITIAL ENCOUNTER Status : Acute Current Visit: No (4) Ascites SNOMED Code(s): 836329819 Code(s): R18.8 - OTHER ASCITES Status: Chronic Current Visit: Yes Qualifiers: Ascites type: due to alcoholic cirrhosis Qualified Code(s): K70.31 - Alcoholic cirrhosis of liver with ascites (5) Hepatic cirrhosis SNOMED Code(s): 67526849 Code(s): K74.60 - UNSPECIFIED CIRRHOSIS OF LIVER Status: Chronic Current Visit: Yes Qualifiers: Hepatic cirrhosis type: alcoholic cirrhosis (6) Palliative care status SNOMED Code(s): 344277448 Code(s): Z51.5 - ENCOUNTER FOR PALLIATIVE CARE Status: Acute Current Visit: Yes - Problem List Review Problem List Initiated/Reviewed/Updated: Yes - My Orders Last 24 Hours: My Active Orders 08/16/18 08:21 May Shower [RC] ASDIRECTED Oxygen Therapy [RC] PRN Up With Assistance [RC] ASDIRECTED VTE/DVT Education [RC] PER UNIT ROUTINE Vital Signs [RC] Q4H Consult to Occupational Therapy [OT Evaluation and Treatment] [CONS] Routine PT Evaluation and Treatment [CONS] Routine Acetaminophen [Tylenol] 650 mg PO Q4H PRN Ondansetron [Zofran] 4 mg IVPUSH Q4H PRN Resuscitation Status Routine 08/16/18 08:22 Antiembolic Devices [RC] PER UNIT ROUTINE Intake and Output [RC] Q12H Sequential Compression Device [OM.PC] Per Unit Routine 08/16/18 10:04 Patient Status [ADT] Stat - Plan Plan:: This 77 year old male admitted with falls and subarachnoid hemorrhage 1. Subarachnoid hemorrhage: Stable. Patient and family want no aggressive measures, including blood or platelet transfusions. Monitor and palliative treatment. 2. Falls, deconditioning: PT/OT to evaluate and treat, family looking at placement in SNF to help with strength. 3. Cirrhosis: mild ascites noted, L pleural effusion. Denies wanting any type of treatment, continue palliative treatment. Dispo: Pending placement <Rogelio San - Last Filed: 08/17/18 15:25> - General Info Admission Dx/Problem (Free Text): I have seen and examined to patient independently of Daya Mayer CNP. I have discussed the case for care of this patient with her. I have reviewed and approve of the plan of care as outlined by VERONICA. Please see orders. Awaiting placement. - Patient Data Vitals - Most Recent: Last Vital Signs Temp 36.1 C 08/17/18 10:52 Pulse 86 08/17/18 10:52 Resp 14 08/17/18 10:52 BP 114/56 L 08/17/18 10:52 Pulse Ox 94 L 08/17/18 10:52 I&O - Last 24 Hours: Intake & Output 08/17/18 08/17/18 08/17/18 06:59 14:59 22:59 Intake Total 240 Output Total 500 Balance -260 Med Orders - Current: Current Medications Acetaminophen (Tylenol) 650 mg PO Q4H PRN PRN Reason: Pain (mild 1-3) Ondansetron HCl (Zofran) 4 mg IVPUSH Q4H PRN PRN Reason: Nausea Sodium Chloride (Saline Flush) 10 ml FLUSH ASDIRECTED PRN PRN Reason: Keep Vein Open Last Admin: 08/16/18 01:55 Dose: 10 ml Sodium Chloride (Saline Flush) 2.5 ml FLUSH ASDIRECTED PRN PRN Reason: Keep Vein Open Last Admin: 08/16/18 01:55 Dose: 2.5 ml
--- NOTE | 2018-08-18 08:08 | PCM.PN ---
<Daya Mayer M - Last Filed: 08/18/18 09:51> - General Info Date of Service: 08/18/18 Admission Dx/Problem (Free Text): Falls, subarachnoid hemorrhage Subjective Update: Sitting up in the chair this morning, finished breakfast. Reports knee pain, but denies wanting medications. He denies any other complaints. Spoke with the son regarding SNF placement. He will be meeting with medicaid rep today regarding paperwork for placement. Functional Status: Reports: Pain Controlled, Tolerating Diet, Ambulating, Urinating - Review of Systems General: Reports: No Symptoms. Denies: Weakness, Fatigue Pulmonary: Reports: No Symptoms. Denies: Shortness of Breath Cardiovascular: Reports: No Symptoms. Denies: Chest Pain Gastrointestinal: Reports: No Symptoms. Denies: Abdominal Pain, Nausea, Vomiting Musculoskeletal: Reports: Joint Pain (bilateral knees) Skin: Reports: No Symptoms Neurological: Reports: No Symptoms Psychiatric: Reports: No Symptoms - Patient Data Vitals - Most Recent: Last Vital Signs Temp 97.6 F 08/18/18 07:20 Pulse 88 08/18/18 07:20 Resp 17 08/18/18 07:20 BP 116/60 08/18/18 07:20 Pulse Ox 93 L 08/18/18 07:20 Weight - Most Recent: 88.995 kg I&O - Last 24 Hours: Intake & Output 08/17/18 08/18/18 08/18/18 22:59 06:59 14:59 Intake Total 120 240 Output Total 380 800 Balance -260 -560 Med Orders - Current: Current Medications Acetaminophen (Tylenol) 650 mg PO Q4H PRN PRN Reason: Pain (mild 1-3) Ondansetron HCl (Zofran) 4 mg IVPUSH Q4H PRN PRN Reason: Nausea Sodium Chloride (Saline Flush) 10 ml FLUSH ASDIRECTED PRN PRN Reason: Keep Vein Open Last Admin: 08/16/18 01:55 Dose: 10 ml Sodium Chloride (Saline Flush) 2.5 ml FLUSH ASDIRECTED PRN PRN Reason: Keep Vein Open Last Admin: 08/16/18 01:55 Dose: 2.5 ml - Exam General: Alert, Oriented, Cooperative, No Acute Distress Lungs: Clear to Auscultation, Normal Respiratory Effort Cardiovascular: Regular Rate, Regular Rhythm GI/Abdominal Exam: Normal Bowel Sounds, Soft, Non-Tender, No Organomegaly Extremities: Normal Inspection, Normal Range of Motion, Non-Tender, No Pedal Edema Neurological: No New Focal Deficit Psy/Mental Status: Alert, Normal Affect, Normal Mood - Problem List & Annotations (1) Subarachnoid hemorrhage SNOMED Code(s): 090582726 Code(s): I60.9 - NONTRAUMATIC SUBARACHNOID HEMORRHAGE, UNSPECIFIED Status: Acute Current Visit: Yes (2) Falls SNOMED Code(s): 2709557, 141602019 Code(s): W19.XXXA - UNSPECIFIED FALL, INITIAL ENCOUNTER Status: Acute Current Visit: Yes Qualifiers: Encounter type: subsequent encounter Qualified Code(s): W19.XXXD - Unspecified fall, subsequent encounter (3) Multiple abrasions SNOMED Code(s): 621827568, 830400995 Code(s): T07.XXXA - UNSPECIFIED MULTIPLE INJURIES, INITIAL ENCOUNTER Status : Acute Current Visit: No (4) Ascites SNOMED Code(s): 901294284 Code(s): R18.8 - OTHER ASCITES Status: Chronic Current Visit: Yes Qualifiers: Ascites type: due to alcoholic cirrhosis Qualified Code(s): K70.31 - Alcoholic cirrhosis of liver with ascites (5) Hepatic cirrhosis SNOMED Code(s): 24400058 Code(s): K74.60 - UNSPECIFIED CIRRHOSIS OF LIVER Status: Chronic Current Visit: Yes Qualifiers: Hepatic cirrhosis type: alcoholic cirrhosis (6) Palliative care status SNOMED Code(s): 043759333 Code(s): Z51.5 - ENCOUNTER FOR PALLIATIVE CARE Status: Acute Current Visit: Yes - Problem List Review Problem List Initiated/Reviewed/Updated: Yes - Plan Plan:: This 77 year old male admitted with falls and subarachnoid hemorrhage 1. Subarachnoid hemorrhage: Stable. Patient and family want no aggressive measures, including blood or platelet transfusions. Monitor and palliative treatment. 2. Falls, deconditioning: PT/OT to evaluate and treat, family looking at placement in SNF to help with strength. 3. Cirrhosis: mild ascites noted, L pleural effusion. Denies wanting any type of treatment, continue palliative treatment. Dispo: Pending placement <Rogelio San - Last Filed: 08/18/18 13:13> - General Info Admission Dx/Problem (Free Text): I have seen and examined to patient independently of Daya Mayer CNP. I have discussed the case for care of this patient with her. I have reviewed and approve of the plan of care as outlined by VERONICA. Please see orders. - Patient Data Vitals - Most Recent: Last Vital Signs Temp 36.2 C 08/18/18 11:44 Pulse 82 08/18/18 11:44 Resp 18 08/18/18 11:44 BP 121/58 L 08/18/18 11:44 Pulse Ox 93 L 08/18/18 11:44 I&O - Last 24 Hours: Intake & Output 08/17/18 08/18/18 08/18/18 22:59 06:59 14:59 Intake Total 120 240 Output Total 380 800 Balance -260 -560 Med Orders - Current: Current Medications Acetaminophen (Tylenol) 650 mg PO Q4H PRN PRN Reason: Pain (mild 1-3) Ondansetron HCl (Zofran) 4 mg IVPUSH Q4H PRN PRN Reason: Nausea Sodium Chloride (Saline Flush) 10 ml FLUSH ASDIRECTED PRN PRN Reason: Keep Vein Open Last Admin: 08/16/18 01:55 Dose: 10 ml Sodium Chloride (Saline Flush) 2.5 ml FLUSH ASDIRECTED PRN PRN Reason: Keep Vein Open Last Admin: 08/16/18 01:55 Dose: 2.5 ml
--- NOTE | 2018-08-19 10:03 | PCM.PN ---
<Daya Mayer M - Last Filed: 08/19/18 09:57> - General Info Date of Service: 08/19/18 Admission Dx/Problem (Free Text): Subarachnoid hemorrhage, falls Subjective Update: Sitting up in the chair, alert and getting ready to eat breakfast. No concerns. he is alert, not conversational. - Review of Systems HEENT: Reports: No Symptoms Pulmonary: Reports: No Symptoms. Denies: Shortness of Breath Cardiovascular: Reports: No Symptoms. Denies: Chest Pain Gastrointestinal: Denies: Abdominal Pain, Nausea, Vomiting Musculoskeletal: Reports: No Symptoms - Patient Data Vitals - Most Recent: Last Vital Signs Temp 98.2 F 08/19/18 07:30 Pulse 85 08/19/18 07:30 Resp 17 08/19/18 07:30 BP 117/57 L 08/19/18 07:30 Pulse Ox 94 L 08/19/18 07:30 Weight - Most Recent: 88.995 kg I&O - Last 24 Hours: Intake & Output 08/18/18 08/19/18 08/19/18 22:59 06:59 14:59 Intake Total 240 240 Output Total 500 Balance 240 -260 Med Orders - Current: Current Medications Acetaminophen (Tylenol) 650 mg PO Q4H PRN PRN Reason: Pain (mild 1-3) Ondansetron HCl (Zofran) 4 mg IVPUSH Q4H PRN PRN Reason: Nausea Sodium Chloride (Saline Flush) 10 ml FLUSH ASDIRECTED PRN PRN Reason: Keep Vein Open Last Admin: 08/16/18 01:55 Dose: 10 ml Sodium Chloride (Saline Flush) 2.5 ml FLUSH ASDIRECTED PRN PRN Reason: Keep Vein Open Last Admin: 08/16/18 01:55 Dose: 2.5 ml - Exam General: Alert, Cooperative, No Acute Distress. No: Oriented Lungs: Clear to Auscultation, Normal Respiratory Effort Cardiovascular: Regular Rate, Regular Rhythm GI/Abdominal Exam: Normal Bowel Sounds, Soft, Non-Tender Extremities: Normal Range of Motion, Non-Tender, Pedal Edema (+2 pitting edema) Skin: Ecchymosis (multiple bruises to face, healing along with healing abrasions to knees and bruising. ) Neurological: No New Focal Deficit Psy/Mental Status: Alert, Normal Affect, Normal Mood - Problem List & Annotations (1) Subarachnoid hemorrhage SNOMED Code(s): 185898332 Code(s): I60.9 - NONTRAUMATIC SUBARACHNOID HEMORRHAGE, UNSPECIFIED Status: Acute Current Visit: Yes (2) Falls SNOMED Code(s): 6258394, 893939377 Code(s): W19.XXXA - UNSPECIFIED FALL, INITIAL ENCOUNTER Status: Acute Current Visit: Yes Qualifiers: Encounter type: subsequent encounter Qualified Code(s): W19.XXXD - Unspecified fall, subsequent encounter (3) Multiple abrasions SNOMED Code(s): 862187304, 930666283 Code(s): T07.XXXA - UNSPECIFIED MULTIPLE INJURIES, INITIAL ENCOUNTER Status : Acute Current Visit: No (4) Ascites SNOMED Code(s): 199010870 Code(s): R18.8 - OTHER ASCITES Status: Chronic Current Visit: Yes Qualifiers: Ascites type: due to alcoholic cirrhosis Qualified Code(s): K70.31 - Alcoholic cirrhosis of liver with ascites (5) Hepatic cirrhosis SNOMED Code(s): 67026648 Code(s): K74.60 - UNSPECIFIED CIRRHOSIS OF LIVER Status: Chronic Current Visit: Yes Qualifiers: Hepatic cirrhosis type: alcoholic cirrhosis (6) Palliative care status SNOMED Code(s): 433271909 Code(s): Z51.5 - ENCOUNTER FOR PALLIATIVE CARE Status: Acute Current Visit: Yes - Problem List Review Problem List Initiated/Reviewed/Updated: Yes - Plan Plan:: This 77 year old male admitted with falls and subarachnoid hemorrhage 1. Subarachnoid hemorrhage: Stable. Remains neurologically stable. Continue palliative treatment. 2. Falls, deconditioning: Continue with PT as well as ambulating with nursing. Family looking at placement in SNF to help with strength. 3. Cirrhosis: mild ascites noted, L pleural effusion. Denies wanting any type of treatment, continue palliative treatment. Dispo: Pending placement, awaiting decision from long term. <Rogelio San - Last Filed: 08/19/18 13:34> - General Info Admission Dx/Problem (Free Text): I have seen and examined to patient independently of Daya Mayer CNP. I have discussed the case for care of this patient with her. I have reviewed and approve of the plan of care as outlined by VERONICA. Please see orders. - Patient Data Vitals - Most Recent: Last Vital Signs Temp 36.6 C 08/19/18 11:43 Pulse 91 08/19/18 11:43 Resp 16 08/19/18 11:43 BP 107/56 L 08/19/18 11:43 Pulse Ox 97 08/19/18 11:43 I&O - Last 24 Hours: Intake & Output 08/18/18 08/19/18 08/19/18 22:59 06:59 14:59 Intake Total 240 240 Output Total 500 Balance 240 -260 Med Orders - Current: Current Medications Acetaminophen (Tylenol) 650 mg PO Q4H PRN PRN Reason: Pain (mild 1-3) Ondansetron HCl (Zofran) 4 mg IVPUSH Q4H PRN PRN Reason: Nausea Sodium Chloride (Saline Flush) 10 ml FLUSH ASDIRECTED PRN PRN Reason: Keep Vein Open Last Admin: 08/16/18 01:55 Dose: 10 ml Sodium Chloride (Saline Flush) 2.5 ml FLUSH ASDIRECTED PRN PRN Reason: Keep Vein Open Last Admin: 08/16/18 01:55 Dose: 2.5 ml
--- NOTE | 2018-08-20 09:23 | PCM.PN ---
- General Info Date of Service: 08/20/18 Admission Dx/Problem (Free Text): The patient was admitted secondary to subarachnoid hemorrhage due to frequent falls. Subjective Update: The patient is a 77-year-old gentleman who has a past history of dementia and cirrhosis and had been admitted initially on August 16, 2018 after a fall which he sustained a subarachnoid hemorrhage. Both patient and the patient's son had been wanting no interventions or further testing. The patient has been transitioned to palliative care measures and pending placement. The patient is alert only to his name but says he is not having pain. Functional Status: Reports: Pain Controlled - Review of Systems General: Reports: No Symptoms HEENT: Reports: No Symptoms Pulmonary: Reports: No Symptoms Cardiovascular: Reports: No Symptoms Gastrointestinal: Reports: No Symptoms Genitourinary: Reports: No Symptoms Musculoskeletal: Reports: No Symptoms Skin: Reports: No Symptoms Neurological: Reports: No Symptoms Psychiatric: Reports: No Symptoms Systems Review Comment:: Review of systems not reliable secondary to the patient's dementia - Patient Data Vitals - Most Recent: Last Vital Signs Temp 36.6 C 08/20/18 07:00 Pulse 92 08/20/18 07:00 Resp 16 08/20/18 07:00 BP 125/60 08/20/18 07:00 Pulse Ox 93 L 08/20/18 07:00 Weight - Most Recent: 88.995 kg I&O - Last 24 Hours: Intake & Output 08/19/18 08/20/18 08/20/18 22:59 06:59 14:59 Intake Total 440 200 Output Total 350 300 Balance 90 -100 Med Orders - Current: Current Medications Acetaminophen (Tylenol) 650 mg PO Q4H PRN PRN Reason: Pain (mild 1-3) Ondansetron HCl (Zofran) 4 mg IVPUSH Q4H PRN PRN Reason: Nausea Sodium Chloride (Saline Flush) 10 ml FLUSH ASDIRECTED PRN PRN Reason: Keep Vein Open Last Admin: 08/16/18 01:55 Dose: 10 ml Sodium Chloride (Saline Flush) 2.5 ml FLUSH ASDIRECTED PRN PRN Reason: Keep Vein Open Last Admin: 08/16/18 01:55 Dose: 2.5 ml - Exam Quality Assessment: No: Supplemental Oxygen General: Alert, Cooperative, No Acute Distress. No: Oriented HEENT: Pupils Equal, Pupils Reactive. No: Mucous Membr. Moist/[place] (Dry) Neck: Supple, Trachea Midline Lungs: Clear to Auscultation, Normal Respiratory Effort Cardiovascular: Regular Rate, Regular Rhythm GI/Abdominal Exam: Normal Bowel Sounds, No Distention Back Exam: Full Range of Motion (Age appropriate). No: Normal Inspection ( Kyphosis) Extremities: Normal Inspection, No Pedal Edema Skin: Warm, Dry, Intact Neurological: No New Focal Deficit Psy/Mental Status: Alert - Problem List & Annotations (1) Dementia SNOMED Code(s): 51327253 Code(s): F03.90 - UNSPECIFIED DEMENTIA WITHOUT BEHAVIORAL DISTURBANCE Status: Acute Priority: High Current Visit: Yes Qualifiers: Dementia type: associated with alcoholism Dementia behavioral disturbance: without behavioral disturbance Qualified Code(s): F10.27 - Alcohol dependence with alcohol-induced persisting dementia (2) Palliative care status SNOMED Code(s): 928104000 Code(s): Z51.5 - ENCOUNTER FOR PALLIATIVE CARE Status: Acute Priority: High Current Visit: Yes (3) Subarachnoid hemorrhage SNOMED Code(s): 401958935 Code(s): I60.9 - NONTRAUMATIC SUBARACHNOID HEMORRHAGE, UNSPECIFIED Status: Acute Current Visit: Yes (4) Ascites SNOMED Code(s): 749661034 Code(s): R18.8 - OTHER ASCITES Status: Chronic Priority: High Current Visit: Yes Qualifiers: Ascites type: due to alcoholic cirrhosis Qualified Code(s): K70.31 - Alcoholic cirrhosis of liver with ascites (5) Hepatic cirrhosis SNOMED Code(s): 02826111 Code(s): K74.60 - UNSPECIFIED CIRRHOSIS OF LIVER Status: Chronic Current Visit: Yes Qualifiers: Hepatic cirrhosis type: alcoholic cirrhosis - Problem List Review Problem List Initiated/Reviewed/Updated: Yes - My Orders Last 24 Hours: My Active Orders 08/19/18 20:23 Communication Order [RC] STAT - Plan Plan:: This 77 year old male admitted with falls and subarachnoid hemorrhage 1. Subarachnoid hemorrhage: Stable. Remains neurologically stable. Continue palliative treatment. 2. Falls, deconditioning: Continue with PT as well as ambulating with nursing. Family looking at placement in SNF to help with strength. 3. Cirrhosis: mild ascites noted, L pleural effusion. Denies wanting any type of treatment, continue palliative treatment. Dispo: Pending placement, awaiting decision from residential. The patient is a 77-year-old gentleman who is currently just being monitored for palliative measures. No further testing is been ordered. The patient is currently awaiting placement. If placement is unavailable the patient's son has consider taking his father back to [place]. For now we'll discontinue to watch the patient. No further testing is been ordered due to palliative care measures being instituted.
--- NOTE | 2018-08-21 07:24 | PCM.PN ---
- General Info Date of Service: 08/21/18 Admission Dx/Problem (Free Text): The patient was admitted secondary to subarachnoid hemorrhage due to frequent falls. Subjective Update: The patient is a 77-year-old gentleman who has a history of dementia and cirrhosis. He is currently in palliative care measures only. Currently awaiting placement. He has denied any pain. Functional Status: Reports: Pain Controlled - Review of Systems Systems Review Comment:: The patient has dementia, family members are not available history and not reliable. - Patient Data Vitals - Most Recent: Last Vital Signs Temp 36.7 C 08/21/18 03:57 Pulse 92 08/21/18 03:57 Resp 16 08/21/18 03:57 BP 119/76 08/21/18 03:57 Pulse Ox 93 L 08/21/18 03:57 Weight - Most Recent: 88.995 kg I&O - Last 24 Hours: Intake & Output 08/20/18 08/21/18 08/21/18 22:59 06:59 14:59 Intake Total 480 0 Output Total 650 450 Balance -170 -450 Med Orders - Current: Current Medications Acetaminophen (Tylenol) 650 mg PO Q4H PRN PRN Reason: Pain (mild 1-3) Ondansetron HCl (Zofran) 4 mg IVPUSH Q4H PRN PRN Reason: Nausea Sodium Chloride (Saline Flush) 10 ml FLUSH ASDIRECTED PRN PRN Reason: Keep Vein Open Last Admin: 08/16/18 01:55 Dose: 10 ml Sodium Chloride (Saline Flush) 2.5 ml FLUSH ASDIRECTED PRN PRN Reason: Keep Vein Open Last Admin: 08/16/18 01:55 Dose: 2.5 ml - Exam Quality Assessment: No: Supplemental Oxygen General: Alert, Cooperative, No Acute Distress. No: Oriented HEENT: Pupils Equal, Pupils Reactive, EOMI. No: Mucous Membr. Moist/[place] (dry) Neck: Supple, Trachea Midline Lungs: Decreased Breath Sounds, Crackles, Rales Cardiovascular: Regular Rate, Irregular Rhythm, Murmurs GI/Abdominal Exam: Normal Bowel Sounds, Soft, No Distention Back Exam: Normal Inspection (Kyphosis, appropriate for age) Extremities: Normal Inspection, No Pedal Edema Skin: Warm, Dry, Intact Neurological: No New Focal Deficit Psy/Mental Status: Alert - Problem List & Annotations (1) Dementia SNOMED Code(s): 37794862 Code(s): F03.90 - UNSPECIFIED DEMENTIA WITHOUT BEHAVIORAL DISTURBANCE Status: Acute Priority: High Current Visit: Yes Qualifiers: Dementia type: associated with alcoholism Dementia behavioral disturbance: without behavioral disturbance Qualified Code(s): F10.27 - Alcohol dependence with alcohol-induced persisting dementia (2) Palliative care status SNOMED Code(s): 376381655 Code(s): Z51.5 - ENCOUNTER FOR PALLIATIVE CARE Status: Acute Priority: High Current Visit: Yes (3) Subarachnoid hemorrhage SNOMED Code(s): 024437357 Code(s): I60.9 - NONTRAUMATIC SUBARACHNOID HEMORRHAGE, UNSPECIFIED Status: Acute Current Visit: Yes (4) Ascites SNOMED Code(s): 583052384 Code(s): R18.8 - OTHER ASCITES Status: Chronic Priority: High Current Visit: Yes Qualifiers: Ascites type: due to alcoholic cirrhosis Qualified Code(s): K70.31 - Alcoholic cirrhosis of liver with ascites (5) Hepatic cirrhosis SNOMED Code(s): 99001208 Code(s): K74.60 - UNSPECIFIED CIRRHOSIS OF LIVER Status: Chronic Current Visit: Yes Qualifiers: Hepatic cirrhosis type: alcoholic cirrhosis - Problem List Review Problem List Initiated/Reviewed/Updated: Yes - Plan Plan:: The patient is a 77-year-old gentleman who has a history of dementia, falls and has a subarachnoid hemorrhage it is currently stable. He is primarily on palliative care measures at this time. The patient does have severe deconditioning and is physically weak. The patient does have a history of alcoholic associated cirrhosis and is currently compensated. No further type of treatment is wanted by the patient or the patient's son. Patient is currently awaiting placement in either hospice, long-term care facility or possibly returning home to [place].
--- NOTE | 2018-08-22 10:08 | PCM.PN ---
- General Info Date of Service: 08/22/18 Admission Dx/Problem (Free Text): Subarachnoid hemorrhage due to frequent falls. Subjective Update: Doing well today, no concerns. Functional Status: Reports: Pain Controlled, Tolerating Diet, Ambulating (with assistance due to gait instability ), Urinating - Review of Systems Pulmonary: Reports: No Symptoms. Denies: Shortness of Breath Cardiovascular: Reports: No Symptoms. Denies: Chest Pain Gastrointestinal: Reports: No Symptoms. Denies: Abdominal Pain, Nausea, Vomiting Genitourinary: Reports: No Symptoms Musculoskeletal: Reports: No Symptoms Skin: Reports: No Symptoms Neurological: Reports: No Symptoms Psychiatric: Reports: No Symptoms - Patient Data Vitals - Most Recent: Last Vital Signs Temp 97.2 F 08/22/18 08:10 Pulse 88 08/22/18 07:05 Resp 16 08/22/18 07:05 BP 101/58 L 08/22/18 07:05 Pulse Ox 95 08/22/18 07:05 Weight - Most Recent: 88.995 kg I&O - Last 24 Hours: Intake & Output 08/21/18 08/22/18 08/22/18 22:59 06:59 14:59 Intake Total 680 100 320 Output Total 930 275 Balance -250 -175 320 Med Orders - Current: Current Medications Acetaminophen (Tylenol) 650 mg PO Q4H PRN PRN Reason: Pain (mild 1-3) Ondansetron HCl (Zofran) 4 mg IVPUSH Q4H PRN PRN Reason: Nausea Sodium Chloride (Saline Flush) 10 ml FLUSH ASDIRECTED PRN PRN Reason: Keep Vein Open Last Admin: 08/16/18 01:55 Dose: 10 ml Sodium Chloride (Saline Flush) 2.5 ml FLUSH ASDIRECTED PRN PRN Reason: Keep Vein Open Last Admin: 08/16/18 01:55 Dose: 2.5 ml - Exam General: Alert, Cooperative, No Acute Distress. No: Oriented Lungs: Normal Respiratory Effort, Crackles (bibasilar) Cardiovascular: Regular Rate, Regular Rhythm GI/Abdominal Exam: Normal Bowel Sounds, Soft, Other (mils ascites) Extremities: Normal Range of Motion, Non-Tender, Pedal Edema (+2 pitting edema bilaterally.) Skin: Ecchymosis (bruising to face improving as well as bruising to legs and arms from falls. Abrasions continue to heal. ) Psy/Mental Status: Alert, Normal Affect, Normal Mood - Problem List & Annotations (1) Subarachnoid hemorrhage SNOMED Code(s): 473098968 Code(s): I60.9 - NONTRAUMATIC SUBARACHNOID HEMORRHAGE, UNSPECIFIED Status: Acute Current Visit: Yes (2) Falls SNOMED Code(s): 2571995, 352258744 Code(s): W19.XXXA - UNSPECIFIED FALL, INITIAL ENCOUNTER Status: Acute Current Visit: Yes Qualifiers: Encounter type: subsequent encounter Qualified Code(s): W19.XXXD - Unspecified fall, subsequent encounter (3) Multiple abrasions SNOMED Code(s): 204822269, 499087792 Code(s): T07.XXXA - UNSPECIFIED MULTIPLE INJURIES, INITIAL ENCOUNTER Status : Acute Current Visit: No (4) Ascites SNOMED Code(s): 062145985 Code(s): R18.8 - OTHER ASCITES Status: Chronic Priority: High Current Visit: Yes Qualifiers: Ascites type: due to alcoholic cirrhosis Qualified Code(s): K70.31 - Alcoholic cirrhosis of liver with ascites (5) Hepatic cirrhosis SNOMED Code(s): 22572640 Code(s): K74.60 - UNSPECIFIED CIRRHOSIS OF LIVER Status: Chronic Current Visit: Yes Qualifiers: Hepatic cirrhosis type: alcoholic cirrhosis (6) Palliative care status SNOMED Code(s): 696644902 Code(s): Z51.5 - ENCOUNTER FOR PALLIATIVE CARE Status: Acute Priority: High Current Visit: Yes - Problem List Review Problem List Initiated/Reviewed/Updated: Yes - Plan Plan:: This 77 year old male admitted with falls and subarachnoid hemorrhage 1. Subarachnoid hemorrhage: Stable. Remains neurologically stable. Continue palliative treatment. 2. Falls, deconditioning: PT discharged. Will continue to encourage ambulating with nursing 4 times daily and up to chair for all meals. Family looking at placement in SNF to help with strength. 3. Cirrhosis: mild ascites noted, L pleural effusion. Denies wanting any type of treatment, continue palliative treatment. Dispo: Pending placement, awaiting decision from group home.
--- NOTE | 2018-08-23 09:00 | PCM.PN ---
- General Info Date of Service: 08/23/18 Admission Dx/Problem (Free Text): Subarachnoid hemorrhage due to frequent falls. Subjective Update: Doing well today, no complaints. No chest pain or SOB. Just waking up for the morning. Functional Status: Reports: Pain Controlled, Tolerating Diet, Ambulating, Urinating - Review of Systems General: Reports: No Symptoms HEENT: Reports: No Symptoms Pulmonary: Reports: No Symptoms. Denies: Shortness of Breath Cardiovascular: Reports: No Symptoms. Denies: Chest Pain Gastrointestinal: Reports: No Symptoms. Denies: Abdominal Pain, Nausea, Vomiting Neurological: Reports: No Symptoms Psychiatric: Reports: No Symptoms - Patient Data Vitals - Most Recent: Last Vital Signs Temp 97.2 F 08/23/18 07:53 Pulse 92 08/23/18 07:53 Resp 16 08/23/18 07:53 BP 113/51 L 08/23/18 07:53 Pulse Ox 95 08/23/18 07:53 Weight - Most Recent: 88.995 kg I&O - Last 24 Hours: Intake & Output 08/22/18 08/23/18 08/23/18 22:59 06:59 14:59 Intake Total 240 420 Output Total 500 Balance 240 -80 Med Orders - Current: Current Medications Acetaminophen (Tylenol) 650 mg PO Q4H PRN PRN Reason: Pain (mild 1-3) Ondansetron HCl (Zofran) 4 mg IVPUSH Q4H PRN PRN Reason: Nausea Sodium Chloride (Saline Flush) 10 ml FLUSH ASDIRECTED PRN PRN Reason: Keep Vein Open Last Admin: 08/16/18 01:55 Dose: 10 ml Sodium Chloride (Saline Flush) 2.5 ml FLUSH ASDIRECTED PRN PRN Reason: Keep Vein Open Last Admin: 08/16/18 01:55 Dose: 2.5 ml - Exam General: Alert, Cooperative, No Acute Distress. No: Oriented Lungs: Clear to Auscultation, Normal Respiratory Effort Cardiovascular: Regular Rate, Regular Rhythm GI/Abdominal Exam: Normal Bowel Sounds, Soft, Non-Tender, No Distention Back Exam: Normal Inspection, Full Range of Motion Extremities: Normal Inspection, Normal Range of Motion, Pedal Edema (+2 pitting edema, stable) Skin: Ecchymosis (continues to improve, facial bruising nearly healed along with BLE abrasions and bruising to knees and legs) - Problem List & Annotations (1) Palliative care status SNOMED Code(s): 556166810 Code(s): Z51.5 - ENCOUNTER FOR PALLIATIVE CARE Status: Acute Priority: High Current Visit: Yes (2) Subarachnoid hemorrhage SNOMED Code(s): 383700558 Code(s): I60.9 - NONTRAUMATIC SUBARACHNOID HEMORRHAGE, UNSPECIFIED Status: Acute Current Visit: Yes (3) Falls SNOMED Code(s): 6268882, 423596217 Code(s): W19.XXXA - UNSPECIFIED FALL, INITIAL ENCOUNTER Status: Acute Current Visit: Yes Qualifiers: Encounter type: subsequent encounter Qualified Code(s): W19.XXXD - Unspecified fall, subsequent encounter (4) Multiple abrasions SNOMED Code(s): 421884069, 791748262 Code(s): T07.XXXA - UNSPECIFIED MULTIPLE INJURIES, INITIAL ENCOUNTER Status : Acute Current Visit: No (5) Ascites SNOMED Code(s): 156653468 Code(s): R18.8 - OTHER ASCITES Status: Chronic Priority: High Current Visit: Yes Qualifiers: Ascites type: due to alcoholic cirrhosis Qualified Code(s): K70.31 - Alcoholic cirrhosis of liver with ascites (6) Hepatic cirrhosis SNOMED Code(s): 59123173 Code(s): K74.60 - UNSPECIFIED CIRRHOSIS OF LIVER Status: Chronic Current Visit: Yes Qualifiers: Hepatic cirrhosis type: alcoholic cirrhosis - Problem List Review Problem List Initiated/Reviewed/Updated: Yes - My Orders Last 24 Hours: My Active Orders 08/22/18 10:38 Ambulate [RC] Q6HR - Plan Plan:: This 77 year old male admitted with falls and subarachnoid hemorrhage 1. Subarachnoid hemorrhage: Stable. Remains neurologically stable. Continue palliative treatment. 2. Falls, deconditioning: Continue to encourage ambulating with nursing 4 times daily and up to chair for all meals. Family looking at placement in SNF to help with strength and inability care for him at home 3. Cirrhosis: Stable. mild ascites noted, L pleural effusion. Denies wanting any type of treatment, continue palliative treatment. Dispo: Pending placement, awaiting decision from [facility].
--- NOTE | 2018-08-24 08:44 | PCM.PN ---
- General Info Date of Service: 08/24/18 Admission Dx/Problem (Free Text): Subarachnoid hemorrhage due to frequent falls. Subjective Update: Eating breakfast, no complaints this morning. - Review of Systems General: Reports: No Symptoms. Denies: Weakness, Malaise Pulmonary: Reports: No Symptoms. Denies: Shortness of Breath Cardiovascular: Reports: No Symptoms. Denies: Chest Pain Gastrointestinal: Reports: No Symptoms. Denies: Abdominal Pain, Nausea, Vomiting Genitourinary: Reports: No Symptoms Musculoskeletal: Reports: No Symptoms Skin: Reports: No Symptoms Neurological: Reports: No Symptoms Psychiatric: Reports: No Symptoms - Patient Data Vitals - Most Recent: Last Vital Signs Temp 98.4 F 08/24/18 04:00 Pulse 100 08/24/18 04:00 Resp 16 08/24/18 04:00 BP 137/73 08/24/18 04:00 Pulse Ox 95 08/24/18 04:00 Weight - Most Recent: 88.995 kg I&O - Last 24 Hours: Intake & Output 08/23/18 08/24/18 08/24/18 22:59 06:59 14:59 Intake Total 360 Output Total 300 Balance 60 Med Orders - Current: Current Medications Acetaminophen (Tylenol) 650 mg PO Q4H PRN PRN Reason: Pain (mild 1-3) Ondansetron HCl (Zofran) 4 mg IVPUSH Q4H PRN PRN Reason: Nausea Sodium Chloride (Saline Flush) 10 ml FLUSH ASDIRECTED PRN PRN Reason: Keep Vein Open Last Admin: 08/16/18 01:55 Dose: 10 ml Sodium Chloride (Saline Flush) 2.5 ml FLUSH ASDIRECTED PRN PRN Reason: Keep Vein Open Last Admin: 08/16/18 01:55 Dose: 2.5 ml - Exam General: Alert, Cooperative, No Acute Distress. No: Oriented Lungs: Clear to Auscultation, Normal Respiratory Effort Cardiovascular: Regular Rate, Regular Rhythm, No Murmurs GI/Abdominal Exam: Normal Bowel Sounds, Soft, Non-Tender, Other (mild ascites) Neurological: No New Focal Deficit Psy/Mental Status: Alert, Normal Affect, Normal Mood - Problem List & Annotations (1) Palliative care status SNOMED Code(s): 046006722 Code(s): Z51.5 - ENCOUNTER FOR PALLIATIVE CARE Status: Acute Priority: High Current Visit: Yes (2) Subarachnoid hemorrhage SNOMED Code(s): 558545592 Code(s): I60.9 - NONTRAUMATIC SUBARACHNOID HEMORRHAGE, UNSPECIFIED Status: Acute Current Visit: Yes (3) Falls SNOMED Code(s): 0140572, 039904068 Code(s): W19.XXXA - UNSPECIFIED FALL, INITIAL ENCOUNTER Status: Acute Current Visit: Yes Qualifiers: Encounter type: subsequent encounter Qualified Code(s): W19.XXXD - Unspecified fall, subsequent encounter (4) Multiple abrasions SNOMED Code(s): 125255291, 702930733 Code(s): T07.XXXA - UNSPECIFIED MULTIPLE INJURIES, INITIAL ENCOUNTER Status : Acute Current Visit: No (5) Ascites SNOMED Code(s): 186747997 Code(s): R18.8 - OTHER ASCITES Status: Chronic Priority: High Current Visit: Yes Qualifiers: 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 Subarachnoid hemorrhage: Stable. Remains neurologically stable. Continue palliative treatment. 2. Falls, deconditioning: Nursing reports balance at times very poor and seems to worsen. Continue to encourage ambulating with nursing 4 times daily and up to chair for all meals. Family looking at placement in SNF to help with strength and inability care for him at home 3. Cirrhosis: Stable. mild ascites noted, L pleural effusion. Denies wanting any type of treatment, continue palliative treatment. Dispo: Pending placement, awaiting decision from jail.
--- NOTE | 2018-08-25 08:01 | PCM.PN ---
- General Info Date of Service: 08/25/18 Admission Dx/Problem (Free Text): Subarachnoid hemorrhage due to frequent falls. Subjective Update: Doing well today. Son at bedside. Continuing to await paperwork for SNF placement. No concerns today. Functional Status: Reports: Pain Controlled, Tolerating Diet, Ambulating, Urinating - Review of Systems General: Reports: No Symptoms. Denies: Fever, Weakness, Fatigue Pulmonary: Reports: No Symptoms. Denies: Shortness of Breath Cardiovascular: Reports: No Symptoms. Denies: Chest Pain Gastrointestinal: Reports: No Symptoms. Denies: Abdominal Pain, Nausea, Vomiting Genitourinary: Reports: No Symptoms Musculoskeletal: Reports: No Symptoms Skin: Reports: No Symptoms Neurological: Reports: No Symptoms Psychiatric: Reports: No Symptoms - Patient Data Vitals - Most Recent: Last Vital Signs Temp 98.2 F 08/25/18 04:13 Pulse 97 08/25/18 04:13 Resp 18 08/25/18 04:13 BP 119/61 08/25/18 04:13 Pulse Ox 94 L 08/25/18 04:13 Weight - Most Recent: 88.995 kg I&O - Last 24 Hours: Intake & Output 08/24/18 08/25/18 08/25/18 22:59 06:59 14:59 Intake Total 360 200 Output Total 200 Balance 160 200 Med Orders - Current: Current Medications Acetaminophen (Tylenol) 650 mg PO Q4H PRN PRN Reason: Pain (mild 1-3) Ondansetron HCl (Zofran) 4 mg IVPUSH Q4H PRN PRN Reason: Nausea Sodium Chloride (Saline Flush) 10 ml FLUSH ASDIRECTED PRN PRN Reason: Keep Vein Open Last Admin: 08/16/18 01:55 Dose: 10 ml Sodium Chloride (Saline Flush) 2.5 ml FLUSH ASDIRECTED PRN PRN Reason: Keep Vein Open Last Admin: 08/16/18 01:55 Dose: 2.5 ml - Exam General: Alert, Cooperative, No Acute Distress. No: Oriented Lungs: Clear to Auscultation, Normal Respiratory Effort Cardiovascular: Regular Rate, Regular Rhythm GI/Abdominal Exam: Normal Bowel Sounds, Soft, Non-Tender, Other (mild ascites) Back Exam: Normal Inspection, Full Range of Motion Extremities: Normal Inspection, Normal Range of Motion, Non-Tender, Pedal Edema (+1 pitting) Skin: Ecchymosis (continues heal to bilateral lower legs and face.) Neurological: No New Focal Deficit Psy/Mental Status: Alert, Normal Affect, Normal Mood - Problem List & Annotations (1) Palliative care status SNOMED Code(s): 447568726 Code(s): Z51.5 - ENCOUNTER FOR PALLIATIVE CARE Status: Acute Priority: High Current Visit: Yes (2) Subarachnoid hemorrhage SNOMED Code(s): 610535597 Code(s): I60.9 - NONTRAUMATIC SUBARACHNOID HEMORRHAGE, UNSPECIFIED Status: Acute Current Visit: Yes (3) Falls SNOMED Code(s): 0731049, 899396732 Code(s): W19.XXXA - UNSPECIFIED FALL, INITIAL ENCOUNTER Status: Acute Current Visit: Yes Qualifiers: Encounter type: subsequent encounter Qualified Code(s): W19.XXXD - Unspecified fall, subsequent encounter (4) Multiple abrasions SNOMED Code(s): 426410310, 691655490 Code(s): T07.XXXA - UNSPECIFIED MULTIPLE INJURIES, INITIAL ENCOUNTER Status : Acute Current Visit: No (5) Ascites SNOMED Code(s): 754604663 Code(s): R18.8 - OTHER ASCITES Status: Chronic Priority: High Current Visit: Yes Qualifiers: Ascites type: due to alcoholic cirrhosis Qualified Code(s): K70.31 - Alcoholic cirrhosis of liver with ascites (6) Hepatic cirrhosis SNOMED Code(s): 38292381 Code(s): K74.60 - UNSPECIFIED CIRRHOSIS OF LIVER Status: Chronic Current Visit: Yes Qualifiers: Hepatic cirrhosis type: alcoholic cirrhosis - Problem List Review Problem List Initiated/Reviewed/Updated: Yes - Plan Plan:: This 77 year old male admitted with falls and subarachnoid hemorrhage 1. Subarachnoid hemorrhage: Stable. Remains neurologically stable. Continue palliative treatment. 2. Falls, deconditioning: Nursing reports balance at times very poor and seems to worsen. Continue to encourage ambulating with nursing 4 times daily and up to chair for all meals. Family looking at placement in SNF to help with strength and inability care for him at home 3. Cirrhosis: Stable. mild ascites noted, L pleural effusion. Denies wanting any type of treatment, continue palliative treatment. Dispo: Pending placement, awaiting decision from long-term.
--- NOTE | 2018-08-26 08:06 | PCM.PN ---
- General Info Date of Service: 08/26/18 Admission Dx/Problem (Free Text): Subarachnoid hemorrhage due to frequent falls. Subjective Update: Doing ok this morning, alert, no oriented, per usual. No complaints. Has been up ambulating with nursing. Functional Status: Reports: Pain Controlled, Tolerating Diet, Ambulating, Urinating - Review of Systems General: Reports: No Symptoms Pulmonary: Reports: No Symptoms. Denies: Shortness of Breath Cardiovascular: Reports: No Symptoms. Denies: Chest Pain Gastrointestinal: Reports: No Symptoms. Denies: Abdominal Pain, Nausea, Vomiting Genitourinary: Reports: No Symptoms Musculoskeletal: Reports: No Symptoms Skin: Reports: No Symptoms Neurological: Reports: No Symptoms Psychiatric: Reports: No Symptoms - Patient Data Vitals - Most Recent: Last Vital Signs Temp 97.2 F 08/26/18 07:24 Pulse 88 08/26/18 07:24 Resp 16 08/26/18 07:24 BP 120/58 L 08/26/18 07:24 Pulse Ox 94 L 08/26/18 07:24 Weight - Most Recent: 88.995 kg I&O - Last 24 Hours: Intake & Output 08/25/18 08/26/18 08/26/18 22:59 06:59 14:59 Intake Total 320 300 Output Total 300 225 Balance 20 75 Med Orders - Current: Current Medications Acetaminophen (Tylenol) 650 mg PO Q4H PRN PRN Reason: Pain (mild 1-3) Ondansetron HCl (Zofran) 4 mg IVPUSH Q4H PRN PRN Reason: Nausea Sodium Chloride (Saline Flush) 10 ml FLUSH ASDIRECTED PRN PRN Reason: Keep Vein Open Last Admin: 08/16/18 01:55 Dose: 10 ml Sodium Chloride (Saline Flush) 2.5 ml FLUSH ASDIRECTED PRN PRN Reason: Keep Vein Open Last Admin: 08/16/18 01:55 Dose: 2.5 ml - Exam General: Alert, Cooperative, No Acute Distress. No: Oriented Lungs: Clear to Auscultation, Normal Respiratory Effort Cardiovascular: Regular Rate, Regular Rhythm GI/Abdominal Exam: Normal Bowel Sounds, Soft, Other (mild ascited) Extremities: Normal Range of Motion, Non-Tender, Pedal Edema (+1 ) Skin: Ecchymosis (bruising continues to heal to face and BLE) Neurological: Normal Speech, Strength Equal Bilateral. No: Normal Gait ( unsteady gait, needs stand by assist with walker. gait can be steady, then unsteady at times as well.) Psy/Mental Status: Alert, Normal Affect, Normal Mood - Problem List & Annotations (1) Palliative care status SNOMED Code(s): 903578899 Code(s): Z51.5 - ENCOUNTER FOR PALLIATIVE CARE Status: Acute Priority: High Current Visit: Yes (2) Subarachnoid hemorrhage SNOMED Code(s): 827711067 Code(s): I60.9 - NONTRAUMATIC SUBARACHNOID HEMORRHAGE, UNSPECIFIED Status: Acute Current Visit: Yes (3) Falls SNOMED Code(s): 3032432, 680078647 Code(s): W19.XXXA - UNSPECIFIED FALL, INITIAL ENCOUNTER Status: Acute Current Visit: Yes Qualifiers: Encounter type: subsequent encounter Qualified Code(s): W19.XXXD - Unspecified fall, subsequent encounter (4) Multiple abrasions SNOMED Code(s): 575113424, 619286828 Code(s): T07.XXXA - UNSPECIFIED MULTIPLE INJURIES, INITIAL ENCOUNTER Status : Acute Current Visit: No (5) Ascites SNOMED Code(s): 213158633 Code(s): R18.8 - OTHER ASCITES Status: Chronic Priority: High Current Visit: Yes Qualifiers: Ascites type: due to alcoholic cirrhosis Qualified Code(s): K70.31 - Alcoholic cirrhosis of liver with ascites (6) Hepatic cirrhosis SNOMED Code(s): 61808717 Code(s): K74.60 - UNSPECIFIED CIRRHOSIS OF LIVER Status: Chronic Current Visit: Yes Qualifiers: Hepatic cirrhosis type: alcoholic cirrhosis - Problem List Review Problem List Initiated/Reviewed/Updated: Yes - Plan Plan:: This 77 year old male admitted with falls and subarachnoid hemorrhage 1. Subarachnoid hemorrhage: Stable. Remains neurologically stable. Continue palliative treatment. 2. Falls, deconditioning: Nursing reports balance at times very poor and seems to worsen. Continue to encourage ambulating with nursing 4 times daily and up to chair for all meals. Family looking at placement in SNF to help with strength and inability care for him at home 3. Cirrhosis: Stable. mild ascites noted, L pleural effusion. Denies wanting any type of treatment, continue palliative treatment. Dispo: Pending placement, awaiting decision from residential.
--- NOTE | 2018-08-27 08:28 | PCM.PN ---
- General Info Date of Service: 08/27/18 - Review of Systems Systems Review Comment:: no new complaints, no pain, no shortness of breath - Patient Data Vitals - Most Recent: Last Vital Signs Temp 36.8 C 08/27/18 07:45 Pulse 94 08/27/18 07:45 Resp 14 08/27/18 07:45 BP 113/55 L 08/27/18 07:45 Pulse Ox 94 L 08/27/18 07:45 Weight - Most Recent: 88.995 kg I&O - Last 24 Hours: Intake & Output 08/26/18 08/27/18 08/27/18 22:59 06:59 14:59 Intake Total 700 120 Output Total 600 Balance 700 -480 Med Orders - Current: Current Medications Acetaminophen (Tylenol) 650 mg PO Q4H PRN PRN Reason: Pain (mild 1-3) Ondansetron HCl (Zofran) 4 mg IVPUSH Q4H PRN PRN Reason: Nausea Sodium Chloride (Saline Flush) 10 ml FLUSH ASDIRECTED PRN PRN Reason: Keep Vein Open Last Admin: 08/16/18 01:55 Dose: 10 ml Sodium Chloride (Saline Flush) 2.5 ml FLUSH ASDIRECTED PRN PRN Reason: Keep Vein Open Last Admin: 08/16/18 01:55 Dose: 2.5 ml - Exam General: Cooperative Neck: Supple Lungs: Clear to Auscultation, Normal Respiratory Effort Cardiovascular: Regular Rate, Regular Rhythm GI/Abdominal Exam: Soft, Non-Tender, No Distention Extremities: Non-Tender, No Pedal Edema Skin: Warm, Dry, Intact - Problem List Review Problem List Initiated/Reviewed/Updated: Yes - Plan Plan:: This 77 year old male admitted with falls and subarachnoid hemorrhage. 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
--- NOTE | 2018-08-28 09:12 | PCM.PN ---
- General Info Date of Service: 08/28/18 - Review of Systems Systems Review Comment:: no complaints - Patient Data Vitals - Most Recent: Last Vital Signs Temp 36.4 C 08/28/18 07:23 Pulse 89 08/28/18 07:23 Resp 14 08/28/18 07:23 BP 113/56 L 08/28/18 07:23 Pulse Ox 96 08/28/18 07:23 Weight - Most Recent: 88.995 kg I&O - Last 24 Hours: Intake & Output 08/27/18 08/28/18 08/28/18 22:59 06:59 14:59 Intake Total 200 Output Total 300 1050 Balance -300 -850 Med Orders - Current: Current Medications Acetaminophen (Tylenol) 650 mg PO Q4H PRN PRN Reason: Pain (mild 1-3) Ondansetron HCl (Zofran) 4 mg IVPUSH Q4H PRN PRN Reason: Nausea Sodium Chloride (Saline Flush) 10 ml FLUSH ASDIRECTED PRN PRN Reason: Keep Vein Open Last Admin: 08/16/18 01:55 Dose: 10 ml Sodium Chloride (Saline Flush) 2.5 ml FLUSH ASDIRECTED PRN PRN Reason: Keep Vein Open Last Admin: 08/16/18 01:55 Dose: 2.5 ml - Exam General: Alert, Oriented HEENT: Mucous Membr. Moist/[place] Neck: Supple Lungs: Clear to Auscultation, Normal Respiratory Effort Cardiovascular: Regular Rate, Regular Rhythm GI/Abdominal Exam: Normal Bowel Sounds, Soft, Non-Tender Extremities: Non-Tender, No Pedal Edema Skin: Warm, Dry, Intact - Problem List Review Problem List Initiated/Reviewed/Updated: Yes - Plan Plan:: This 77 year old male admitted with falls and subarachnoid hemorrhage. Patient not wanting any further evaluation or medical care. 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
--- NOTE | 2018-08-29 11:27 | PCM.PN ---
- General Info Date of Service: 08/29/18 Admission Dx/Problem (Free Text): Subarachnoid hemorrhage due to frequent falls. Subjective Update: Doing well this morning, no complaints. Functional Status: Reports: Pain Controlled, Tolerating Diet, Ambulating, Urinating - Review of Systems General: Reports: No Symptoms. Denies: Fever, Weakness, Fatigue Pulmonary: Reports: No Symptoms. Denies: Shortness of Breath Cardiovascular: Reports: No Symptoms. Denies: Chest Pain Gastrointestinal: Reports: No Symptoms. Denies: Abdominal Pain, Nausea, Vomiting Genitourinary: Reports: No Symptoms. Denies: Dysuria, Frequency, Burning Neurological: Reports: No Symptoms Psychiatric: Reports: No Symptoms - Patient Data Vitals - Most Recent: Last Vital Signs Temp 96.8 F 08/29/18 07:00 Pulse 100 08/29/18 07:00 Resp 18 08/29/18 07:00 BP 122/64 08/29/18 07:00 Pulse Ox 95 08/29/18 07:00 Weight - Most Recent: 88.995 kg I&O - Last 24 Hours: Intake & Output 08/28/18 08/29/18 08/29/18 22:59 06:59 14:59 Intake Total 550 400 240 Output Total 2 Balance 548 400 240 Med Orders - Current: Current Medications Acetaminophen (Tylenol) 650 mg PO Q4H PRN PRN Reason: Pain (mild 1-3) Ondansetron HCl (Zofran) 4 mg IVPUSH Q4H PRN PRN Reason: Nausea Sodium Chloride (Saline Flush) 10 ml FLUSH ASDIRECTED PRN PRN Reason: Keep Vein Open Last Admin: 08/16/18 01:55 Dose: 10 ml Sodium Chloride (Saline Flush) 2.5 ml FLUSH ASDIRECTED PRN PRN Reason: Keep Vein Open Last Admin: 08/16/18 01:55 Dose: 2.5 ml - Exam General: Alert, Cooperative, No Acute Distress. No: Oriented Lungs: Clear to Auscultation, Normal Respiratory Effort Cardiovascular: Regular Rate, Regular Rhythm GI/Abdominal Exam: Normal Bowel Sounds, Soft, Non-Tender Extremities: Normal Inspection, Normal Range of Motion, Non-Tender, Pedal Edema (+1 pitting edema BLE) Neurological: No New Focal Deficit Psy/Mental Status: Alert, Normal Affect, Normal Mood - Problem List & Annotations (1) Palliative care status SNOMED Code(s): 841281857 Code(s): Z51.5 - ENCOUNTER FOR PALLIATIVE CARE Status: Acute Priority: High Current Visit: Yes (2) Subarachnoid hemorrhage SNOMED Code(s): 741583639 Code(s): I60.9 - NONTRAUMATIC SUBARACHNOID HEMORRHAGE, UNSPECIFIED Status: Acute Current Visit: Yes (3) Falls SNOMED Code(s): 9282942, 223998353 Code(s): W19.XXXA - UNSPECIFIED FALL, INITIAL ENCOUNTER Status: Acute Current Visit: Yes Qualifiers: Encounter type: subsequent encounter Qualified Code(s): W19.XXXD - Unspecified fall, subsequent encounter (4) Multiple abrasions SNOMED Code(s): 642460225, 586064463 Code(s): T07.XXXA - UNSPECIFIED MULTIPLE INJURIES, INITIAL ENCOUNTER Status : Acute Current Visit: No (5) Ascites SNOMED Code(s): 789524400 Code(s): R18.8 - OTHER ASCITES Status: Chronic Priority: High Current Visit: Yes Qualifiers: Ascites type: due to alcoholic cirrhosis Qualified Code(s): K70.31 - Alcoholic cirrhosis of liver with ascites (6) Hepatic cirrhosis SNOMED Code(s): 05771369 Code(s): K74.60 - UNSPECIFIED CIRRHOSIS OF LIVER Status: Chronic Current Visit: Yes Qualifiers: Hepatic cirrhosis type: alcoholic cirrhosis - Problem List Review Problem List Initiated/Reviewed/Updated: Yes - Plan Plan:: This 77 year old male admitted with falls and subarachnoid hemorrhage. 1. Subarachnoid hemorrhage: Stable. Remains neurologically stable. Patient not wanting any further evaluation or medical care. 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 Dispo: Pending placement, awaiting decision from alf.
--- NOTE | 2018-08-30 08:10 | PCM.PN ---
- General Info Date of Service: 08/30/18 Admission Dx/Problem (Free Text): Subarachnoid hemorrhage due to frequent falls. Subjective Update: Doing well this morning, just finished with breakfast and a shower. No complaints. Functional Status: Reports: Pain Controlled, Tolerating Diet, Ambulating, Urinating - Review of Systems General: Reports: No Symptoms. Denies: Weakness Pulmonary: Reports: No Symptoms. Denies: Shortness of Breath Cardiovascular: Reports: No Symptoms. Denies: Chest Pain Gastrointestinal: Reports: No Symptoms. Denies: Abdominal Pain, Nausea, Vomiting Genitourinary: Reports: No Symptoms Neurological: Reports: No Symptoms Psychiatric: Reports: No Symptoms - Patient Data Vitals - Most Recent: Last Vital Signs Temp 97.5 F 08/30/18 07:32 Pulse 87 08/30/18 07:32 Resp 16 08/30/18 07:32 BP 109/59 L 08/30/18 07:32 Pulse Ox 92 L 08/30/18 07:32 Weight - Most Recent: 88.995 kg I&O - Last 24 Hours: Intake & Output 08/29/18 08/30/18 08/30/18 22:59 06:59 14:59 Intake Total 540 250 Output Total 2 375 Balance 538 -125 Med Orders - Current: Current Medications Acetaminophen (Tylenol) 650 mg PO Q4H PRN PRN Reason: Pain (mild 1-3) Ondansetron HCl (Zofran) 4 mg IVPUSH Q4H PRN PRN Reason: Nausea Sodium Chloride (Saline Flush) 10 ml FLUSH ASDIRECTED PRN PRN Reason: Keep Vein Open Last Admin: 08/16/18 01:55 Dose: 10 ml Sodium Chloride (Saline Flush) 2.5 ml FLUSH ASDIRECTED PRN PRN Reason: Keep Vein Open Last Admin: 08/16/18 01:55 Dose: 2.5 ml - Exam General: Alert, Cooperative, No Acute Distress. No: Oriented Lungs: Clear to Auscultation, Normal Respiratory Effort Cardiovascular: Regular Rate, Regular Rhythm GI/Abdominal Exam: Normal Bowel Sounds, Soft, Non-Tender Extremities: Normal Inspection, Normal Range of Motion, Non-Tender, No Pedal Edema Wound/Incisions: Healing Well Neurological: No New Focal Deficit Psy/Mental Status: Alert, Normal Affect, Normal Mood - Problem List & Annotations (1) Palliative care status SNOMED Code(s): 330676434 Code(s): Z51.5 - ENCOUNTER FOR PALLIATIVE CARE Status: Acute Priority: High Current Visit: Yes (2) Subarachnoid hemorrhage SNOMED Code(s): 487091670 Code(s): I60.9 - NONTRAUMATIC SUBARACHNOID HEMORRHAGE, UNSPECIFIED Status: Acute Current Visit: Yes (3) Falls SNOMED Code(s): 2388284, 836222212 Code(s): W19.XXXA - UNSPECIFIED FALL, INITIAL ENCOUNTER Status: Acute Current Visit: Yes Qualifiers: Encounter type: subsequent encounter Qualified Code(s): W19.XXXD - Unspecified fall, subsequent encounter (4) Multiple abrasions SNOMED Code(s): 307788339, 817497521 Code(s): T07.XXXA - UNSPECIFIED MULTIPLE INJURIES, INITIAL ENCOUNTER Status : Acute Current Visit: No (5) Ascites SNOMED Code(s): 406893963 Code(s): R18.8 - OTHER ASCITES Status: Chronic Priority: High Current Visit: Yes Qualifiers: Ascites type: due to alcoholic cirrhosis Qualified Code(s): K70.31 - Alcoholic cirrhosis of liver with ascites (6) Hepatic cirrhosis SNOMED Code(s): 19159949 Code(s): K74.60 - UNSPECIFIED CIRRHOSIS OF LIVER Status: Chronic Current Visit: Yes Qualifiers: Hepatic cirrhosis type: alcoholic cirrhosis - Problem List Review Problem List Initiated/Reviewed/Updated: Yes - Plan Plan:: This 77 year old male admitted with falls and subarachnoid hemorrhage. 1. Subarachnoid hemorrhage: Stable. Remains neurologically stable. Patient not wanting any further evaluation or medical care. Case housing management officer and awaiting placement. Dispo: Pending placement, awaiting decision from custodial.
--- NOTE | 2018-08-31 09:32 | PCM.PN ---
- General Info Date of Service: 08/31/18 Admission Dx/Problem (Free Text): Subarachnoid hemorrhage due to frequent falls. Subjective Update: The patient is a 77-year-old gentleman who has a history of dementia as well as frequent falls which had resulted in a subarachnoid hemorrhage. He was admitted on August 16, 2018. The patient says that he is doing well. He is waiting for placement. He has no complaints. The patient's review of systems is suspect secondary to his dementia. Functional Status: Reports: Pain Controlled, Tolerating Diet - Review of Systems General: Reports: No Symptoms HEENT: Reports: No Symptoms Pulmonary: Reports: No Symptoms Cardiovascular: Reports: No Symptoms Gastrointestinal: Reports: No Symptoms Genitourinary: Reports: No Symptoms Musculoskeletal: Reports: No Symptoms Skin: Reports: No Symptoms Neurological: Reports: No Symptoms Psychiatric: Reports: No Symptoms - Patient Data Vitals - Most Recent: Last Vital Signs Temp 36.5 C 08/31/18 07:42 Pulse 93 08/31/18 07:42 Resp 16 08/31/18 07:42 BP 109/58 L 08/31/18 07:42 Pulse Ox 95 08/31/18 07:42 Weight - Most Recent: 88.995 kg I&O - Last 24 Hours: Intake & Output 08/30/18 08/31/18 08/31/18 22:59 06:59 14:59 Intake Total 450 100 360 Balance 450 100 360 Med Orders - Current: Current Medications Acetaminophen (Tylenol) 650 mg PO Q4H PRN PRN Reason: Pain (mild 1-3) Ondansetron HCl (Zofran) 4 mg IVPUSH Q4H PRN PRN Reason: Nausea Sodium Chloride (Saline Flush) 10 ml FLUSH ASDIRECTED PRN PRN Reason: Keep Vein Open Last Admin: 08/16/18 01:55 Dose: 10 ml Sodium Chloride (Saline Flush) 2.5 ml FLUSH ASDIRECTED PRN PRN Reason: Keep Vein Open Last Admin: 08/16/18 01:55 Dose: 2.5 ml - Exam Quality Assessment: No: Supplemental Oxygen General: Alert, Cooperative. No: Oriented HEENT: Pupils Equal, Pupils Reactive. No: Mucous Membr. Moist/[place] (Dry, edentulous) Neck: Supple, Trachea Midline Lungs: Clear to Auscultation, Normal Respiratory Effort Cardiovascular: Regular Rate, Regular Rhythm, Murmurs (Grade 3/6 holosystolic murmur) GI/Abdominal Exam: Normal Bowel Sounds, Soft, No Distention Back Exam: Normal Inspection (Age appropriate) Extremities: Normal Inspection, No Pedal Edema Skin: Warm, Dry, Intact Neurological: No New Focal Deficit Psy/Mental Status: Alert, Normal Affect, Normal Mood - Problem List & Annotations (1) Dementia SNOMED Code(s): 68467825 Code(s): F03.90 - UNSPECIFIED DEMENTIA WITHOUT BEHAVIORAL DISTURBANCE Status: Acute Priority: High Current Visit: Yes Qualifiers: Dementia type: associated with alcoholism Dementia behavioral disturbance: without behavioral disturbance Qualified Code(s): F10.27 - Alcohol dependence with alcohol-induced persisting dementia (2) Palliative care status SNOMED Code(s): 606060283 Code(s): Z51.5 - ENCOUNTER FOR PALLIATIVE CARE Status: Acute Priority: High Current Visit: Yes (3) Subarachnoid hemorrhage SNOMED Code(s): 664692656 Code(s): I60.9 - NONTRAUMATIC SUBARACHNOID HEMORRHAGE, UNSPECIFIED Status: Acute Current Visit: Yes (4) Ascites SNOMED Code(s): 250840497 Code(s): R18.8 - OTHER ASCITES Status: Chronic Priority: High Current Visit: Yes Qualifiers: Ascites 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 He is neurologically stable. The patient and the family wanted no further interventions. He is essentially and palliative care measures. No further testing is been ordered. He is currently awaiting placement.
--- NOTE | 2018-09-01 08:05 | PCM.PN ---
<Alfredo Gudino - Last Filed: 09/01/18 08:03> - General Info Date of Service: 09/01/18 Subjective Update: Has no complaints today. - Review of Systems General: Reports: Other (full ROS is negative ) - Patient Data Vitals - Most Recent: Last Vital Signs Temp 36.3 C 09/01/18 03:54 Pulse 94 09/01/18 03:54 Resp 16 09/01/18 03:54 BP 106/47 L 09/01/18 03:54 Pulse Ox 94 L 09/01/18 03:54 Weight - Most Recent: 88.995 kg I&O - Last 24 Hours: Intake & Output 08/31/18 09/01/18 09/01/18 22:59 06:59 14:59 Intake Total 360 450 Output Total 675 Balance 360 -225 Med Orders - Current: Current Medications Acetaminophen (Tylenol) 650 mg PO Q4H PRN PRN Reason: Pain (mild 1-3) Ondansetron HCl (Zofran) 4 mg IVPUSH Q4H PRN PRN Reason: Nausea Sodium Chloride (Saline Flush) 10 ml FLUSH ASDIRECTED PRN PRN Reason: Keep Vein Open Last Admin: 08/16/18 01:55 Dose: 10 ml Sodium Chloride (Saline Flush) 2.5 ml FLUSH ASDIRECTED PRN PRN Reason: Keep Vein Open Last Admin: 08/16/18 01:55 Dose: 2.5 ml - Exam General: Alert, Oriented Lungs: Clear to Auscultation, Normal Respiratory Effort Cardiovascular: Regular Rate, Regular Rhythm Peripheral Pulses: 2+: Dorsalis Pedis (L), Dorsalis Pedis (R) Psy/Mental Status: Alert, Normal Affect, Normal Mood - Problem List Review Problem List Initiated/Reviewed/Updated: Yes - Plan Plan:: Assessment: #1. Subarachnoid hemorrhage Plan: #1. Awaiting placement. As per case management note, waiting for [place]. Family made aware of this. <Rogelio San M - Last Filed: 09/01/18 10:48> - General Info Admission Dx/Problem (Free Text): I have seen and examined to patient independently of medical staff services coordinator, Alfredo Gudino MD. I have discussed the case for care of this patient with him. I have reviewed and approve of the plan of care as outlined by medical staff services coordinator.. Please see orders. The patient is pending medicare/medicaid application for placement in skilled facility. - Patient Data Vitals - Most Recent: Last Vital Signs Temp 36.3 C 09/01/18 03:54 Pulse 94 09/01/18 03:54 Resp 16 09/01/18 03:54 BP 106/47 L 09/01/18 03:54 Pulse Ox 94 L 09/01/18 03:54 I&O - Last 24 Hours: Intake & Output 08/31/18 09/01/18 09/01/18 22:59 06:59 14:59 Intake Total 360 450 Output Total 675 Balance 360 -225 Med Orders - Current: Current Medications Acetaminophen (Tylenol) 650 mg PO Q4H PRN PRN Reason: Pain (mild 1-3) Ondansetron HCl (Zofran) 4 mg IVPUSH Q4H PRN PRN Reason: Nausea Sodium Chloride (Saline Flush) 10 ml FLUSH ASDIRECTED PRN PRN Reason: Keep Vein Open Last Admin: 08/16/18 01:55 Dose: 10 ml Sodium Chloride (Saline Flush) 2.5 ml FLUSH ASDIRECTED PRN PRN Reason: Keep Vein Open Last Admin: 08/16/18 01:55 Dose: 2.5 ml - Problem List & Annotations (1) Dementia SNOMED Code(s): 33488330 Code(s): F03.90 - UNSPECIFIED DEMENTIA WITHOUT BEHAVIORAL DISTURBANCE Status: Acute Priority: High Current Visit: Yes Qualifiers: Dementia type: associated with alcoholism Dementia behavioral disturbance: without behavioral disturbance Qualified Code(s): F10.27 - Alcohol dependence with alcohol-induced persisting dementia (2) Palliative care status SNOMED Code(s): 889180539 Code(s): Z51.5 - ENCOUNTER FOR PALLIATIVE CARE Status: Acute Priority: High Current Visit: Yes (3) Subarachnoid hemorrhage SNOMED Code(s): 939800944 Code(s): I60.9 - NONTRAUMATIC SUBARACHNOID HEMORRHAGE, UNSPECIFIED Status: Acute Current Visit: Yes (4) Ascites SNOMED Code(s): 301019647 Code(s): R18.8 - OTHER ASCITES Status: Chronic Priority: High Current Visit: Yes Qualifiers: Ascites type: due to alcoholic cirrhosis Qualified Code(s): K70.31 - Alcoholic cirrhosis of liver with ascites (5) Hepatic cirrhosis SNOMED Code(s): 34423817 Code(s): K74.60 - UNSPECIFIED CIRRHOSIS OF LIVER Status: Chronic Current Visit: Yes Qualifiers: Hepatic cirrhosis type: alcoholic cirrhosis
--- NOTE | 2018-09-02 10:01 | PCM.PN ---
<Alfredo Gudino - Last Filed: 09/02/18 10:00> - General Info Date of Service: 09/02/18 Subjective Update: Was seen today having breakfast up at his chair. He has no complaints. No events to report in last 24hrs. - Review of Systems General: Reports: Other (see hpi) - Patient Data Vitals - Most Recent: Last Vital Signs Temp 36.1 C 09/02/18 07:52 Pulse 59 L 09/02/18 07:52 Resp 20 09/02/18 07:52 BP 107/58 L 09/02/18 07:52 Pulse Ox 97 09/02/18 07:52 Weight - Most Recent: 88.995 kg I&O - Last 24 Hours: Intake & Output 09/01/18 09/02/18 09/02/18 22:59 06:59 14:59 Intake Total 1040 596 220 Output Total 420 Balance 1040 176 220 Med Orders - Current: Current Medications Acetaminophen (Tylenol) 650 mg PO Q4H PRN PRN Reason: Pain (mild 1-3) Ondansetron HCl (Zofran) 4 mg IVPUSH Q4H PRN PRN Reason: Nausea Sodium Chloride (Saline Flush) 10 ml FLUSH ASDIRECTED PRN PRN Reason: Keep Vein Open Last Admin: 08/16/18 01:55 Dose: 10 ml Sodium Chloride (Saline Flush) 2.5 ml FLUSH ASDIRECTED PRN PRN Reason: Keep Vein Open Last Admin: 08/16/18 01:55 Dose: 2.5 ml - Exam General: Alert Lungs: Clear to Auscultation, Normal Respiratory Effort Cardiovascular: Regular Rate, Regular Rhythm Extremities: Non-Tender, No Pedal Edema Peripheral Pulses: 2+: Dorsalis Pedis (L), Dorsalis Pedis (R) Psy/Mental Status: Alert, Normal Affect, Normal Mood - Problem List Review Problem List Initiated/Reviewed/Updated: Yes - Plan Plan:: Assessment: #1. Subarachnoid hemorrhage Plan: #1. Awaiting placement. As per case management note, waiting [place]. Family made aware of this. #2. Continue to follow case management work up <Rogelio San - Last Filed: 09/02/18 12:31> - General Info Admission Dx/Problem (Free Text): I have seen and examined to patient independently of medical records technician, Alfredo Gudino MD. I have discussed the case for care of this patient with him. I have reviewed and approve of the plan of care as outlined by medical records technician.. Please see orders. The patient is still pending medicare/medicaid application for placement in skilled facility. - Patient Data Vitals - Most Recent: Last Vital Signs Temp 36.1 C 09/02/18 07:52 Pulse 59 L 09/02/18 07:52 Resp 20 09/02/18 07:52 BP 107/58 L 09/02/18 07:52 Pulse Ox 97 09/02/18 07:52 I&O - Last 24 Hours: Intake & Output 09/01/18 09/02/18 09/02/18 22:59 06:59 14:59 Intake Total 1040 596 220 Output Total 420 Balance 1040 176 220 Med Orders - Current: Current Medications Acetaminophen (Tylenol) 650 mg PO Q4H PRN PRN Reason: Pain (mild 1-3) Ondansetron HCl (Zofran) 4 mg IVPUSH Q4H PRN PRN Reason: Nausea Sodium Chloride (Saline Flush) 10 ml FLUSH ASDIRECTED PRN PRN Reason: Keep Vein Open Last Admin: 08/16/18 01:55 Dose: 10 ml Sodium Chloride (Saline Flush) 2.5 ml FLUSH ASDIRECTED PRN PRN Reason: Keep Vein Open Last Admin: 08/16/18 01:55 Dose: 2.5 ml - Problem List & Annotations (1) Dementia SNOMED Code(s): 74193514 Code(s): F03.90 - UNSPECIFIED DEMENTIA WITHOUT BEHAVIORAL DISTURBANCE Status: Acute Priority: High Current Visit: Yes Qualifiers: Dementia type: associated with alcoholism Dementia behavioral disturbance: without behavioral disturbance Qualified Code(s): F10.27 - Alcohol dependence with alcohol-induced persisting dementia (2) Palliative care status SNOMED Code(s): 963934875 Code(s): Z51.5 - ENCOUNTER FOR PALLIATIVE CARE Status: Acute Priority: High Current Visit: Yes (3) Subarachnoid hemorrhage SNOMED Code(s): 239994707 Code(s): I60.9 - NONTRAUMATIC SUBARACHNOID HEMORRHAGE, UNSPECIFIED Status: Acute Current Visit: Yes (4) Ascites SNOMED Code(s): 475649420 Code(s): R18.8 - OTHER ASCITES Status: Chronic Priority: High Current Visit: Yes Qualifiers: Ascites type: due to alcoholic cirrhosis Qualified Code(s): K70.31 - Alcoholic cirrhosis of liver with ascites (5) Hepatic cirrhosis SNOMED Code(s): 89785034 Code(s): K74.60 - UNSPECIFIED CIRRHOSIS OF LIVER Status: Chronic Current Visit: Yes Qualifiers: Hepatic cirrhosis type: alcoholic cirrhosis
--- NOTE | 2018-09-03 05:52 | PCM.PN ---
- General Info Date of Service: 09/03/18 Admission Dx/Problem (Free Text): The patient was admitted secondary to falls with subarachnoid hemorrhage. Subjective Update: Confused, otherwise unchanged. Functional Status: Reports: Pain Controlled - Review of Systems General: Reports: No Symptoms HEENT: Reports: No Symptoms Pulmonary: Reports: No Symptoms Cardiovascular: Reports: No Symptoms Gastrointestinal: Reports: No Symptoms Genitourinary: Reports: No Symptoms Musculoskeletal: Reports: No Symptoms Skin: Reports: No Symptoms Neurological: Reports: No Symptoms Psychiatric: Reports: No Symptoms Systems Review Comment:: Review of systems not reliable - Patient Data Vitals - Most Recent: Last Vital Signs Temp 36.4 C 09/03/18 04:00 Pulse 93 09/03/18 04:00 Resp 14 09/03/18 04:00 BP 108/54 L 09/03/18 04:00 Pulse Ox 93 L 09/03/18 04:00 Weight - Most Recent: 88.995 kg I&O - Last 24 Hours: Intake & Output 09/02/18 09/02/18 09/03/18 14:59 22:59 06:59 Intake Total 220 920 400 Output Total 275 Balance 220 920 125 Med Orders - Current: Current Medications Acetaminophen (Tylenol) 650 mg PO Q4H PRN PRN Reason: Pain (mild 1-3) Ondansetron HCl (Zofran) 4 mg IVPUSH Q4H PRN PRN Reason: Nausea Sodium Chloride (Saline Flush) 10 ml FLUSH ASDIRECTED PRN PRN Reason: Keep Vein Open Last Admin: 08/16/18 01:55 Dose: 10 ml Sodium Chloride (Saline Flush) 2.5 ml FLUSH ASDIRECTED PRN PRN Reason: Keep Vein Open Last Admin: 08/16/18 01:55 Dose: 2.5 ml - Exam Quality Assessment: No: Supplemental Oxygen General: Alert, Cooperative. No: Oriented HEENT: Pupils Equal, Pupils Reactive Neck: Supple, Trachea Midline Lungs: Clear to Auscultation, Normal Respiratory Effort Cardiovascular: Regular Rate, Regular Rhythm, Murmurs GI/Abdominal Exam: Normal Bowel Sounds, No Distention Back Exam: Normal Inspection (Age appropriate) Extremities: Normal Inspection, No Pedal Edema Skin: Warm, Dry, Intact Neurological: No New Focal Deficit Psy/Mental Status: Alert, Normal Affect, Normal Mood - Problem List & Annotations (1) Dementia SNOMED Code(s): 44345768 Code(s): F03.90 - UNSPECIFIED DEMENTIA WITHOUT BEHAVIORAL DISTURBANCE Status: Acute Priority: High Current Visit: Yes Qualifiers: Dementia type: associated with alcoholism Dementia behavioral disturbance: without behavioral disturbance Qualified Code(s): F10.27 - Alcohol dependence with alcohol-induced persisting dementia (2) Palliative care status SNOMED Code(s): 285907895 Code(s): Z51.5 - ENCOUNTER FOR PALLIATIVE CARE Status: Acute Priority: High Current Visit: Yes (3) Subarachnoid hemorrhage SNOMED Code(s): 845984544 Code(s): I60.9 - NONTRAUMATIC SUBARACHNOID HEMORRHAGE, UNSPECIFIED Status: Acute Current Visit: Yes (4) Ascites SNOMED Code(s): 389688859 Code(s): R18.8 - OTHER ASCITES Status: Chronic Priority: High Current Visit: Yes Qualifiers: Ascites type: due to alcoholic cirrhosis Qualified Code(s): K70.31 - Alcoholic cirrhosis of liver with ascites (5) Hepatic cirrhosis SNOMED Code(s): 69503035 Code(s): K74.60 - UNSPECIFIED CIRRHOSIS OF LIVER Status: Chronic Current Visit: Yes Qualifiers: Hepatic cirrhosis type: alcoholic cirrhosis - Problem List Review Problem List Initiated/Reviewed/Updated: Yes - Plan Plan:: No changes. Palliative care measures. No further testing completed. Waiting for [place] Medicaid to be obtained. Currently awaiting placement pending Medicaid.
--- NOTE | 2018-09-04 08:57 | PCM.PN ---
<Alfredo Gudino - Last Filed: 09/04/18 08:55> - General Info Date of Service: 09/04/18 Subjective Update: Seen today at the bedside. He is comfortable without any complaints. - Review of Systems General: Reports: Other (see hpi) - Patient Data Vitals - Most Recent: Last Vital Signs Temp 36.2 C 09/04/18 07:08 Pulse 92 09/04/18 07:08 Resp 17 09/04/18 07:08 BP 113/55 L 09/04/18 07:08 Pulse Ox 93 L 09/04/18 07:08 Weight - Most Recent: 88.995 kg I&O - Last 24 Hours: Intake & Output 09/03/18 09/04/18 09/04/18 22:59 06:59 14:59 Intake Total 880 200 Output Total 400 Balance 480 200 Med Orders - Current: Current Medications Acetaminophen (Tylenol) 650 mg PO Q4H PRN PRN Reason: Pain (mild 1-3) Ondansetron HCl (Zofran) 4 mg IVPUSH Q4H PRN PRN Reason: Nausea Sodium Chloride (Saline Flush) 10 ml FLUSH ASDIRECTED PRN PRN Reason: Keep Vein Open Last Admin: 08/16/18 01:55 Dose: 10 ml Sodium Chloride (Saline Flush) 2.5 ml FLUSH ASDIRECTED PRN PRN Reason: Keep Vein Open Last Admin: 08/16/18 01:55 Dose: 2.5 ml - Exam General: Alert Lungs: Clear to Auscultation, Normal Respiratory Effort Cardiovascular: Regular Rate, Regular Rhythm Peripheral Pulses: 1+: Dorsalis Pedis (L), Dorsalis Pedis (R) Skin: Warm Psy/Mental Status: Alert - Problem List Review Problem List Initiated/Reviewed/Updated: Yes - Plan Plan:: Continue management without changes. Currently awaiting [place] Medicaid for placement. <Rogelio San - Last Filed: 09/04/18 09:09> - General Info Admission Dx/Problem (Free Text): I have seen and examined to patient independently of director of medical staff services, Alfredo Gudino MD. I have discussed the case for care of this patient with him. I have reviewed and approve of the plan of care as outlined by director of medical staff services.. Please see orders. The patient is pending medicare/medicaid application for placement in skilled facility. - Patient Data Vitals - Most Recent: Last Vital Signs Temp 36.2 C 09/04/18 07:08 Pulse 92 09/04/18 07:08 Resp 17 09/04/18 07:08 BP 113/55 L 09/04/18 07:08 Pulse Ox 93 L 09/04/18 07:08 I&O - Last 24 Hours: Intake & Output 09/03/18 09/04/18 09/04/18 22:59 06:59 14:59 Intake Total 880 200 Output Total 400 Balance 480 200 Med Orders - Current: Current Medications Acetaminophen (Tylenol) 650 mg PO Q4H PRN PRN Reason: Pain (mild 1-3) Ondansetron HCl (Zofran) 4 mg IVPUSH Q4H PRN PRN Reason: Nausea Sodium Chloride (Saline Flush) 10 ml FLUSH ASDIRECTED PRN PRN Reason: Keep Vein Open Last Admin: 08/16/18 01:55 Dose: 10 ml Sodium Chloride (Saline Flush) 2.5 ml FLUSH ASDIRECTED PRN PRN Reason: Keep Vein Open Last Admin: 08/16/18 01:55 Dose: 2.5 ml - Problem List & Annotations (1) Dementia SNOMED Code(s): 12462068 Code(s): F03.90 - UNSPECIFIED DEMENTIA WITHOUT BEHAVIORAL DISTURBANCE Status: Acute Priority: High Current Visit: Yes Qualifiers: Dementia type: associated with alcoholism Dementia behavioral disturbance: without behavioral disturbance Qualified Code(s): F10.27 - Alcohol dependence with alcohol-induced persisting dementia (2) Palliative care status SNOMED Code(s): 556777384 Code(s): Z51.5 - ENCOUNTER FOR PALLIATIVE CARE Status: Acute Priority: High Current Visit: Yes (3) Subarachnoid hemorrhage SNOMED Code(s): 576166873 Code(s): I60.9 - NONTRAUMATIC SUBARACHNOID HEMORRHAGE, UNSPECIFIED Status: Acute Current Visit: Yes (4) Ascites SNOMED Code(s): 135662626 Code(s): R18.8 - OTHER ASCITES Status: Chronic Priority: High Current Visit: Yes Qualifiers: Ascites type: due to alcoholic cirrhosis Qualified Code(s): K70.31 - Alcoholic cirrhosis of liver with ascites (5) Hepatic cirrhosis SNOMED Code(s): 59436220 Code(s): K74.60 - UNSPECIFIED CIRRHOSIS OF LIVER Status: Chronic Current Visit: Yes Qualifiers: Hepatic cirrhosis type: alcoholic cirrhosis
--- NOTE | 2018-09-05 07:55 | PCM.PN ---
<Daya Mayer M - Last Filed: 09/05/18 10:11> - General Info Date of Service: 09/05/18 Admission Dx/Problem (Free Text): Falls, subarachnoid hemorrhage. Subjective Update: Eating breakfast, reporting back an butt pain, but denies wanting any medication for it. No other concerns. Son at bedside, he also has no concerns. Functional Status: Reports: Tolerating Diet, Ambulating, Urinating - Review of Systems Cardiovascular: Denies: Chest Pain Gastrointestinal: Reports: No Symptoms. Denies: Abdominal Pain, Nausea, Vomiting Genitourinary: Reports: No Symptoms. Denies: Dysuria, Frequency Musculoskeletal: Reports: Back Pain, Other (buttock) Skin: Reports: No Symptoms Neurological: Reports: No Symptoms Psychiatric: Reports: No Symptoms - Patient Data Vitals - Most Recent: Last Vital Signs Temp 97.7 F 09/05/18 07:00 Pulse 89 09/05/18 07:00 Resp 16 09/05/18 07:00 BP 124/60 09/05/18 07:00 Pulse Ox 91 L 09/05/18 07:00 Weight - Most Recent: 88.995 kg I&O - Last 24 Hours: Intake & Output 09/04/18 09/05/18 09/05/18 22:59 06:59 14:59 Intake Total 500 240 Output Total 575 Balance 500 -335 Med Orders - Current: Current Medications Acetaminophen (Tylenol) 650 mg PO Q4H PRN PRN Reason: Pain (mild 1-3) Ondansetron HCl (Zofran) 4 mg IVPUSH Q4H PRN PRN Reason: Nausea Sodium Chloride (Saline Flush) 10 ml FLUSH ASDIRECTED PRN PRN Reason: Keep Vein Open Last Admin: 08/16/18 01:55 Dose: 10 ml Sodium Chloride (Saline Flush) 2.5 ml FLUSH ASDIRECTED PRN PRN Reason: Keep Vein Open Last Admin: 08/16/18 01:55 Dose: 2.5 ml - Exam General: Alert, Cooperative, No Acute Distress. No: Oriented Lungs: Clear to Auscultation, Normal Respiratory Effort Cardiovascular: Regular Rate GI/Abdominal Exam: Normal Bowel Sounds, Soft, Other (ascites) Extremities: Normal Inspection, Normal Range of Motion, Non-Tender Skin: Warm, Dry Neurological: No New Focal Deficit Psy/Mental Status: Alert, Normal Affect, Normal Mood - Problem List & Annotations (1) Palliative care status SNOMED Code(s): 646509817 Code(s): Z51.5 - ENCOUNTER FOR PALLIATIVE CARE Status: Acute Priority: High Current Visit: Yes (2) Subarachnoid hemorrhage SNOMED Code(s): 859464544 Code(s): I60.9 - NONTRAUMATIC SUBARACHNOID HEMORRHAGE, UNSPECIFIED Status: Acute Current Visit: Yes (3) Falls SNOMED Code(s): 9565567, 041928702 Code(s): W19.XXXA - UNSPECIFIED FALL, INITIAL ENCOUNTER Status: Acute Current Visit: Yes Qualifiers: Encounter type: subsequent encounter Qualified Code(s): W19.XXXD - Unspecified fall, subsequent encounter (4) Multiple abrasions SNOMED Code(s): 579984491, 405641033 Code(s): T07.XXXA - UNSPECIFIED MULTIPLE INJURIES, INITIAL ENCOUNTER Status : Acute Current Visit: No (5) Ascites SNOMED Code(s): 104137503 Code(s): R18.8 - OTHER ASCITES Status: Chronic Priority: High Current Visit: Yes Qualifiers: Ascites type: due to alcoholic cirrhosis Qualified Code(s): K70.31 - Alcoholic cirrhosis of liver with ascites (6) Hepatic cirrhosis SNOMED Code(s): 25373321 Code(s): K74.60 - UNSPECIFIED CIRRHOSIS OF LIVER Status: Chronic Current Visit: Yes Qualifiers: Hepatic cirrhosis type: alcoholic cirrhosis - Problem List Review Problem List Initiated/Reviewed/Updated: Yes - Plan Plan:: This 77 year old man admitted post fall and subarachnoid hemorrhage. Has pmh of cirrhosis and dementia. Continue palliative care at this time. Accepted for SNF placement in [place], pending Medicaid acceptance. Awaiting Medicaid for placement. <Rogelio San - Last Filed: 09/05/18 15:05> - General Info Admission Dx/Problem (Free Text): I have seen and examined to patient independently of Daya Mayer CNP. I have discussed the case for care of this patient with her. I have reviewed and approve of the plan of care as outlined by VERONICA. Please see orders. - Patient Data Vitals - Most Recent: Last Vital Signs Temp 36.5 C 09/05/18 07:00 Pulse 89 09/05/18 07:00 Resp 16 09/05/18 07:00 BP 124/60 09/05/18 07:00 Pulse Ox 91 L 09/05/18 07:00 I&O - Last 24 Hours: Intake & Output 09/05/18 09/05/18 09/05/18 06:59 14:59 22:59 Intake Total 240 120 Output Total 575 Balance -335 120 Med Orders - Current: Current Medications Acetaminophen (Tylenol) 650 mg PO Q4H PRN PRN Reason: Pain (mild 1-3) Ondansetron HCl (Zofran) 4 mg IVPUSH Q4H PRN PRN Reason: Nausea Sodium Chloride (Saline Flush) 10 ml FLUSH ASDIRECTED PRN PRN Reason: Keep Vein Open Last Admin: 08/16/18 01:55 Dose: 10 ml Sodium Chloride (Saline Flush) 2.5 ml FLUSH ASDIRECTED PRN PRN Reason: Keep Vein Open Last Admin: 08/16/18 01:55 Dose: 2.5 ml - Problem List & Annotations (1) Dementia SNOMED Code(s): 63794255 Code(s): F03.90 - UNSPECIFIED DEMENTIA WITHOUT BEHAVIORAL DISTURBANCE Status: Acute Priority: High Current Visit: Yes Qualifiers: Dementia type: associated with alcoholism Dementia behavioral disturbance: without behavioral disturbance Qualified Code(s): F10.27 - Alcohol dependence with alcohol-induced persisting dementia (2) Palliative care status SNOMED Code(s): 145291542 Code(s): Z51.5 - ENCOUNTER FOR PALLIATIVE CARE Status: Acute Priority: High Current Visit: Yes (3) Subarachnoid hemorrhage SNOMED Code(s): 627216596 Code(s): I60.9 - NONTRAUMATIC SUBARACHNOID HEMORRHAGE, UNSPECIFIED Status: Acute Current Visit: Yes (4) Ascites SNOMED Code(s): 828631316 Code(s): R18.8 - OTHER ASCITES Status: Chronic Priority: High Current Visit: Yes Qualifiers: Ascites type: due to alcoholic cirrhosis Qualified Code(s): K70.31 - Alcoholic cirrhosis of liver with ascites (5) Hepatic cirrhosis SNOMED Code(s): 48074397 Code(s): K74.60 - UNSPECIFIED CIRRHOSIS OF LIVER Status: Chronic Current Visit: Yes Qualifiers: Hepatic cirrhosis type: alcoholic cirrhosis
--- NOTE | 2018-09-06 08:05 | PCM.PN ---
<Daya Mayer M - Last Filed: 09/06/18 09:36> - General Info Date of Service: 09/06/18 Admission Dx/Problem (Free Text): Fall, subarachnoid hemorrhage Subjective Update: Resting, not up for breakfast yet. Denies any pain. No other concerns. No family at bedside. Functional Status: Reports: Pain Controlled, Tolerating Diet, Ambulating, Urinating - Review of Systems General: Reports: No Symptoms. Denies: Fever, Weakness, Fatigue Pulmonary: Reports: No Symptoms. Denies: Shortness of Breath Cardiovascular: Reports: No Symptoms. Denies: Chest Pain Gastrointestinal: Reports: No Symptoms. Denies: Abdominal Pain, Nausea, Vomiting Genitourinary: Reports: No Symptoms. Denies: Dysuria, Frequency, Burning Musculoskeletal: Reports: No Symptoms Skin: Reports: No Symptoms Neurological: Reports: No Symptoms Psychiatric: Reports: No Symptoms - Patient Data Vitals - Most Recent: Last Vital Signs Temp 98.3 F 09/06/18 07:37 Pulse 95 09/06/18 07:37 Resp 18 09/06/18 07:37 BP 116/55 L 09/06/18 07:37 Pulse Ox 92 L 09/06/18 07:37 Weight - Most Recent: 88.995 kg I&O - Last 24 Hours: Intake & Output 09/05/18 09/06/18 09/06/18 22:59 06:59 14:59 Intake Total 540 720 Output Total 125 Balance 540 595 Med Orders - Current: Current Medications Acetaminophen (Tylenol) 650 mg PO Q4H PRN PRN Reason: Pain (mild 1-3) Ondansetron HCl (Zofran) 4 mg IVPUSH Q4H PRN PRN Reason: Nausea Sodium Chloride (Saline Flush) 10 ml FLUSH ASDIRECTED PRN PRN Reason: Keep Vein Open Last Admin: 08/16/18 01:55 Dose: 10 ml Sodium Chloride (Saline Flush) 2.5 ml FLUSH ASDIRECTED PRN PRN Reason: Keep Vein Open Last Admin: 08/16/18 01:55 Dose: 2.5 ml - Exam General: Alert, Cooperative, No Acute Distress. No: Oriented Lungs: Clear to Auscultation, Normal Respiratory Effort Cardiovascular: Regular Rate, Regular Rhythm GI/Abdominal Exam: Normal Bowel Sounds, Soft, Non-Tender, Other (mild ascites) Extremities: Normal Inspection, Normal Range of Motion, Pedal Edema (scant edema ) Neurological: No New Focal Deficit Psy/Mental Status: Alert, Normal Affect, Normal Mood - Problem List & Annotations (1) Palliative care status SNOMED Code(s): 338344468 Code(s): Z51.5 - ENCOUNTER FOR PALLIATIVE CARE Status: Acute Priority: High Current Visit: Yes (2) Subarachnoid hemorrhage SNOMED Code(s): 263101042 Code(s): I60.9 - NONTRAUMATIC SUBARACHNOID HEMORRHAGE, UNSPECIFIED Status: Acute Current Visit: Yes (3) Falls SNOMED Code(s): 3257897, 947160354 Code(s): W19.XXXA - UNSPECIFIED FALL, INITIAL ENCOUNTER Status: Acute Current Visit: Yes Qualifiers: Encounter type: subsequent encounter Qualified Code(s): W19.XXXD - Unspecified fall, subsequent encounter (4) Multiple abrasions SNOMED Code(s): 833584393, 557492459 Code(s): T07.XXXA - UNSPECIFIED MULTIPLE INJURIES, INITIAL ENCOUNTER Status : Acute Current Visit: No (5) Ascites SNOMED Code(s): 661741325 Code(s): R18.8 - OTHER ASCITES Status: Chronic Priority: High Current Visit: Yes Qualifiers: Ascites type: due to alcoholic cirrhosis Qualified Code(s): K70.31 - Alcoholic cirrhosis of liver with ascites (6) Hepatic cirrhosis SNOMED Code(s): 07076925 Code(s): K74.60 - UNSPECIFIED CIRRHOSIS OF LIVER Status: Chronic Current Visit: Yes Qualifiers: Hepatic cirrhosis type: alcoholic cirrhosis - Problem List Review Problem List Initiated/Reviewed/Updated: Yes - Plan Plan:: This 77 year old man admitted post fall and subarachnoid hemorrhage. Has pmh of cirrhosis and dementia. Continue palliative care at this time. Accepted for SNF placement in [place], pending Medicaid acceptance. Awaiting Medicaid for placement. <Rogelio San - Last Filed: 09/06/18 10:45> - General Info Admission Dx/Problem (Free Text): I have seen and examined to patient independently of Daya Mayer CNP. I have discussed the case for care of this patient with her. I have reviewed and approve of the plan of care as outlined by SCREENING REPRESENTATIVE. Please see orders. Awaiting medicaid/medicare approval and placement. - Patient Data Vitals - Most Recent: Last Vital Signs Temp 36.8 C 09/06/18 07:37 Pulse 95 09/06/18 07:37 Resp 18 09/06/18 07:37 BP 116/55 L 09/06/18 07:37 Pulse Ox 92 L 09/06/18 07:37 I&O - Last 24 Hours: Intake & Output 09/05/18 09/06/18 09/06/18 22:59 06:59 14:59 Intake Total 540 720 600 Output Total 125 Balance 540 595 600 Med Orders - Current: Current Medications Acetaminophen (Tylenol) 650 mg PO Q4H PRN PRN Reason: Pain (mild 1-3) Ondansetron HCl (Zofran) 4 mg IVPUSH Q4H PRN PRN Reason: Nausea Sodium Chloride (Saline Flush) 10 ml FLUSH ASDIRECTED PRN PRN Reason: Keep Vein Open Last Admin: 08/16/18 01:55 Dose: 10 ml Sodium Chloride (Saline Flush) 2.5 ml FLUSH ASDIRECTED PRN PRN Reason: Keep Vein Open Last Admin: 08/16/18 01:55 Dose: 2.5 ml - Problem List & Annotations (1) Dementia SNOMED Code(s): 19943745 Code(s): F03.90 - UNSPECIFIED DEMENTIA WITHOUT BEHAVIORAL DISTURBANCE Status: Acute Priority: High Current Visit: Yes Qualifiers: Dementia type: associated with alcoholism Dementia behavioral disturbance: without behavioral disturbance Qualified Code(s): F10.27 - Alcohol dependence with alcohol-induced persisting dementia (2) Palliative care status SNOMED Code(s): 149444176 Code(s): Z51.5 - ENCOUNTER FOR PALLIATIVE CARE Status: Acute Priority: High Current Visit: Yes (3) Subarachnoid hemorrhage SNOMED Code(s): 228182709 Code(s): I60.9 - NONTRAUMATIC SUBARACHNOID HEMORRHAGE, UNSPECIFIED Status: Acute Current Visit: Yes (4) Ascites SNOMED Code(s): 413240160 Code(s): R18.8 - OTHER ASCITES Status: Chronic Priority: High Current Visit: Yes Qualifiers: Ascites type: due to alcoholic cirrhosis Qualified Code(s): K70.31 - Alcoholic cirrhosis of liver with ascites (5) Hepatic cirrhosis SNOMED Code(s): 98788916 Code(s): K74.60 - UNSPECIFIED CIRRHOSIS OF LIVER Status: Chronic Current Visit: Yes Qualifiers: Hepatic cirrhosis type: alcoholic cirrhosis
--- NOTE | 2018-09-07 08:07 | PCM.PN ---
<Daya Mayer M - Last Filed: 09/07/18 08:54> - General Info Date of Service: 09/07/18 Admission Dx/Problem (Free Text): Subarachnoid hemorrhage, palliative measures, Subjective Update: Getting up for breakfast with [employer] this morning. Denies complaints. No chest pain or abdominal pain. - Review of Systems General: Reports: No Symptoms. Denies: Weakness HEENT: Reports: No Symptoms. Denies: Headaches, Sore Throat Pulmonary: Reports: No Symptoms. Denies: Shortness of Breath Cardiovascular: Reports: No Symptoms. Denies: Chest Pain Gastrointestinal: Reports: No Symptoms. Denies: Abdominal Pain, Nausea, Vomiting Neurological: Reports: No Symptoms Psychiatric: Reports: No Symptoms - Patient Data Vitals - Most Recent: Last Vital Signs Temp 97.7 F 09/07/18 07:26 Pulse 91 09/07/18 07:26 Resp 16 09/07/18 07:26 BP 97/52 L 09/07/18 07:26 Pulse Ox 93 L 09/07/18 07:26 Weight - Most Recent: 88.995 kg I&O - Last 24 Hours: Intake & Output 09/06/18 09/07/18 09/07/18 22:59 06:59 14:59 Intake Total 1460 220 Output Total 675 Balance 1460 -455 Med Orders - Current: Current Medications Acetaminophen (Tylenol) 650 mg PO Q4H PRN PRN Reason: Pain (mild 1-3) Ondansetron HCl (Zofran) 4 mg IVPUSH Q4H PRN PRN Reason: Nausea Sodium Chloride (Saline Flush) 10 ml FLUSH ASDIRECTED PRN PRN Reason: Keep Vein Open Last Admin: 08/16/18 01:55 Dose: 10 ml Sodium Chloride (Saline Flush) 2.5 ml FLUSH ASDIRECTED PRN PRN Reason: Keep Vein Open Last Admin: 08/16/18 01:55 Dose: 2.5 ml - Exam General: Alert, Cooperative, No Acute Distress. No: Oriented Lungs: Clear to Auscultation, Normal Respiratory Effort Cardiovascular: Regular Rate, Regular Rhythm Extremities: Normal Inspection, Normal Range of Motion, Non-Tender, No Pedal Edema Neurological: No New Focal Deficit Psy/Mental Status: Alert, Normal Affect, Normal Mood - Problem List & Annotations (1) Palliative care status SNOMED Code(s): 361918420 Code(s): Z51.5 - ENCOUNTER FOR PALLIATIVE CARE Status: Acute Priority: High Current Visit: Yes (2) Subarachnoid hemorrhage SNOMED Code(s): 808130235 Code(s): I60.9 - NONTRAUMATIC SUBARACHNOID HEMORRHAGE, UNSPECIFIED Status: Acute Current Visit: Yes (3) Falls SNOMED Code(s): 9995894, 172711536 Code(s): W19.XXXA - UNSPECIFIED FALL, INITIAL ENCOUNTER Status: Acute Current Visit: Yes Qualifiers: Encounter type: subsequent encounter Qualified Code(s): W19.XXXD - Unspecified fall, subsequent encounter (4) Multiple abrasions SNOMED Code(s): 150986167, 624449038 Code(s): T07.XXXA - UNSPECIFIED MULTIPLE INJURIES, INITIAL ENCOUNTER Status : Acute Current Visit: No (5) Ascites SNOMED Code(s): 050963906 Code(s): R18.8 - OTHER ASCITES Status: Chronic Priority: High Current Visit: Yes Qualifiers: Ascites type: due to alcoholic cirrhosis Qualified Code(s): K70.31 - Alcoholic cirrhosis of liver with ascites (6) Hepatic cirrhosis SNOMED Code(s): 99909531 Code(s): K74.60 - UNSPECIFIED CIRRHOSIS OF LIVER Status: Chronic Current Visit: Yes Qualifiers: Hepatic cirrhosis type: alcoholic cirrhosis - Problem List Review Problem List Initiated/Reviewed/Updated: Yes - Plan Plan:: This 77 year old man admitted post fall and subarachnoid hemorrhage. Has pmh of cirrhosis and dementia. Continue palliative care at this time. Accepted for SNF placement in [place], pending Medicaid acceptance. Awaiting Medicaid for placement. <Rogelio San - Last Filed: 09/07/18 09:33> - General Info Admission Dx/Problem (Free Text): I have seen and examined to patient independently of Daya Mayer CNP. I have discussed the case for care of this patient with her. I have reviewed and approve of the plan of care as outlined by VERONICA. Please see orders. Awaiting medicaid/medicare approval and placement. - Patient Data Vitals - Most Recent: Last Vital Signs Temp 36.5 C 09/07/18 07:26 Pulse 91 09/07/18 07:26 Resp 16 09/07/18 07:26 BP 97/52 L 09/07/18 07:26 Pulse Ox 93 L 09/07/18 07:26 I&O - Last 24 Hours: Intake & Output 09/06/18 09/07/18 09/07/18 22:59 06:59 14:59 Intake Total 1460 220 Output Total 675 Balance 1460 -455 Med Orders - Current: Current Medications Acetaminophen (Tylenol) 650 mg PO Q4H PRN PRN Reason: Pain (mild 1-3) Ondansetron HCl (Zofran) 4 mg IVPUSH Q4H PRN PRN Reason: Nausea Sodium Chloride (Saline Flush) 10 ml FLUSH ASDIRECTED PRN PRN Reason: Keep Vein Open Last Admin: 08/16/18 01:55 Dose: 10 ml Sodium Chloride (Saline Flush) 2.5 ml FLUSH ASDIRECTED PRN PRN Reason: Keep Vein Open Last Admin: 08/16/18 01:55 Dose: 2.5 ml - Problem List & Annotations (1) Dementia SNOMED Code(s): 41400676 Code(s): F03.90 - UNSPECIFIED DEMENTIA WITHOUT BEHAVIORAL DISTURBANCE Status: Acute Priority: High Current Visit: Yes Qualifiers: Dementia type: associated with alcoholism Dementia behavioral disturbance: without behavioral disturbance Qualified Code(s): F10.27 - Alcohol dependence with alcohol-induced persisting dementia (2) Palliative care status SNOMED Code(s): 399208999 Code(s): Z51.5 - ENCOUNTER FOR PALLIATIVE CARE Status: Acute Priority: High Current Visit: Yes (3) Subarachnoid hemorrhage SNOMED Code(s): 889974658 Code(s): I60.9 - NONTRAUMATIC SUBARACHNOID HEMORRHAGE, UNSPECIFIED Status: Acute Current Visit: Yes (4) Ascites SNOMED Code(s): 522121370 Code(s): R18.8 - OTHER ASCITES Status: Chronic Priority: High Current Visit: Yes Qualifiers: Ascites type: due to alcoholic cirrhosis Qualified Code(s): K70.31 - Alcoholic cirrhosis of liver with ascites (5) Hepatic cirrhosis SNOMED Code(s): 48781740 Code(s): K74.60 - UNSPECIFIED CIRRHOSIS OF LIVER Status: Chronic Current Visit: Yes Qualifiers: Hepatic cirrhosis type: alcoholic cirrhosis
--- NOTE | 2018-09-08 09:13 | PCM.PN ---
<Daya Mayer M - Last Filed: 09/08/18 09:58> - General Info Date of Service: 09/08/18 Admission Dx/Problem (Free Text): Subarachnoid hemorrhage, falls Subjective Update: Doing well this morning. No concerns. Functional Status: Reports: Pain Controlled, Tolerating Diet, Ambulating, Urinating - Review of Systems General: Reports: No Symptoms. Denies: Weakness HEENT: Reports: No Symptoms. Denies: Headaches, Sore Throat Pulmonary: Reports: No Symptoms. Denies: Shortness of Breath Cardiovascular: Reports: No Symptoms. Denies: Chest Pain Gastrointestinal: Reports: No Symptoms. Denies: Abdominal Pain, Nausea, Vomiting Genitourinary: Reports: No Symptoms. Denies: Dysuria, Frequency, Burning Skin: Reports: No Symptoms Neurological: Reports: No Symptoms Psychiatric: Reports: No Symptoms - Patient Data Vitals - Most Recent: Last Vital Signs Temp 98.0 F 09/08/18 00:00 Pulse 98 09/08/18 00:00 Resp 14 09/08/18 00:00 BP 118/58 L 09/08/18 00:00 Pulse Ox 94 L 09/08/18 00:00 Weight - Most Recent: 88.995 kg I&O - Last 24 Hours: Intake & Output 09/07/18 09/08/18 09/08/18 22:59 06:59 14:59 Intake Total 540 240 Output Total 280 Balance 540 -40 Med Orders - Current: Current Medications Acetaminophen (Tylenol) 650 mg PO Q4H PRN PRN Reason: Pain (mild 1-3) Ondansetron HCl (Zofran) 4 mg IVPUSH Q4H PRN PRN Reason: Nausea Sodium Chloride (Saline Flush) 10 ml FLUSH ASDIRECTED PRN PRN Reason: Keep Vein Open Last Admin: 08/16/18 01:55 Dose: 10 ml Sodium Chloride (Saline Flush) 2.5 ml FLUSH ASDIRECTED PRN PRN Reason: Keep Vein Open Last Admin: 08/16/18 01:55 Dose: 2.5 ml - Exam General: Alert, Cooperative, No Acute Distress. No: Oriented Lungs: Clear to Auscultation, Normal Respiratory Effort Cardiovascular: Regular Rate, Regular Rhythm GI/Abdominal Exam: Normal Bowel Sounds, Soft, Non-Tender Back Exam: Normal Inspection, Full Range of Motion Extremities: Normal Inspection, Normal Range of Motion, Non-Tender, No Pedal Edema Wound/Incisions: Healing Well Neurological: No New Focal Deficit Psy/Mental Status: Alert, Normal Affect, Normal Mood - Problem List & Annotations (1) Palliative care status SNOMED Code(s): 629698639 Code(s): Z51.5 - ENCOUNTER FOR PALLIATIVE CARE Status: Acute Priority: High Current Visit: Yes (2) Subarachnoid hemorrhage SNOMED Code(s): 596639918 Code(s): I60.9 - NONTRAUMATIC SUBARACHNOID HEMORRHAGE, UNSPECIFIED Status: Acute Current Visit: Yes (3) Falls SNOMED Code(s): 2726887, 033212169 Code(s): W19.XXXA - UNSPECIFIED FALL, INITIAL ENCOUNTER Status: Acute Current Visit: Yes Qualifiers: Encounter type: subsequent encounter Qualified Code(s): W19.XXXD - Unspecified fall, subsequent encounter (4) Multiple abrasions SNOMED Code(s): 909094986, 257750082 Code(s): T07.XXXA - UNSPECIFIED MULTIPLE INJURIES, INITIAL ENCOUNTER Status : Acute Current Visit: No (5) Ascites SNOMED Code(s): 368012870 Code(s): R18.8 - OTHER ASCITES Status: Chronic Priority: High Current Visit: Yes Qualifiers: Ascites type: due to alcoholic cirrhosis Qualified Code(s): K70.31 - Alcoholic cirrhosis of liver with ascites (6) Hepatic cirrhosis SNOMED Code(s): 07213881 Code(s): K74.60 - UNSPECIFIED CIRRHOSIS OF LIVER Status: Chronic Current Visit: Yes Qualifiers: Hepatic cirrhosis type: alcoholic cirrhosis - Problem List Review Problem List Initiated/Reviewed/Updated: Yes - Plan Plan:: This 77 year old man admitted post fall and subarachnoid hemorrhage. Has pmh of cirrhosis and dementia. Continue palliative care at this time. Accepted for SNF placement in [place], pending Medicaid acceptance. Awaiting Medicaid for placement. <Rogelio San - Last Filed: 09/08/18 11:35> - General Info Admission Dx/Problem (Free Text): I have seen and examined to patient independently of Daya Mayer CNP. I have discussed the case for care of this patient with her. I have reviewed and approve of the plan of care as outlined by DISTRIBUTION LINEMAN. Please see orders. Awaiting medicaid/medicare approval and placement. Medicaid approved, pending placement. - Patient Data Vitals - Most Recent: Last Vital Signs Temp 36.7 C 09/08/18 00:00 Pulse 98 09/08/18 00:00 Resp 14 09/08/18 00:00 BP 118/58 L 09/08/18 00:00 Pulse Ox 94 L 09/08/18 00:00 I&O - Last 24 Hours: Intake & Output 09/07/18 09/08/18 09/08/18 22:59 06:59 14:59 Intake Total 540 240 360 Output Total 280 Balance 540 -40 360 Med Orders - Current: Current Medications Acetaminophen (Tylenol) 650 mg PO Q4H PRN PRN Reason: Pain (mild 1-3) Ondansetron HCl (Zofran) 4 mg IVPUSH Q4H PRN PRN Reason: Nausea Sodium Chloride (Saline Flush) 10 ml FLUSH ASDIRECTED PRN PRN Reason: Keep Vein Open Last Admin: 08/16/18 01:55 Dose: 10 ml Sodium Chloride (Saline Flush) 2.5 ml FLUSH ASDIRECTED PRN PRN Reason: Keep Vein Open Last Admin: 08/16/18 01:55 Dose: 2.5 ml - Problem List & Annotations (1) Dementia SNOMED Code(s): 15530664 Code(s): F03.90 - UNSPECIFIED DEMENTIA WITHOUT BEHAVIORAL DISTURBANCE Status: Acute Priority: High Current Visit: Yes Qualifiers: Dementia type: associated with alcoholism Dementia behavioral disturbance: without behavioral disturbance Qualified Code(s): F10.27 - Alcohol dependence with alcohol-induced persisting dementia (2) Palliative care status SNOMED Code(s): 694834294 Code(s): Z51.5 - ENCOUNTER FOR PALLIATIVE CARE Status: Acute Priority: High Current Visit: Yes (3) Subarachnoid hemorrhage SNOMED Code(s): 126579312 Code(s): I60.9 - NONTRAUMATIC SUBARACHNOID HEMORRHAGE, UNSPECIFIED Status: Acute Current Visit: Yes (4) Ascites SNOMED Code(s): 379967901 Code(s): R18.8 - OTHER ASCITES Status: Chronic Priority: High Current Visit: Yes Qualifiers: Ascites type: due to alcoholic cirrhosis Qualified Code(s): K70.31 - Alcoholic cirrhosis of liver with ascites (5) Hepatic cirrhosis SNOMED Code(s): 01704510 Code(s): K74.60 - UNSPECIFIED CIRRHOSIS OF LIVER Status: Chronic Current Visit: Yes Qualifiers: Hepatic cirrhosis type: alcoholic cirrhosis
--- NOTE | 2018-09-09 09:28 | PCM.DCSUM1 ---
Discharge Summary - Hospital Course Brief History: This 77 year old male with pmh of dementia and cirrhosis presented with family after falling at home in his bedroom and hitting his head. The son reports he was helped to bed and then 20 minutes later he got up by himself and they heard he had fallen. He hit is head so hard there was a hole in the wall. The son reports he was normal, as he knows, up until 10 days to 2 weeks ago and since then he continually started to decline. He has been falling more and reported him having a possible cold with a cough. Otherwise they are unless of a fall 2 weeks ago, though they did notice broken tile in the kitchen and wondered if he had fallen, but didn't notice any bruising. He has fallen a few other times in the past 10 days, he did fall out of his grandsons truck and ended up hitting his face and has extensive facial bruising and abrasions, he was seen in the ED at that time, head CT did not reveal any cerebral hemorrhages at that time. Isaiah, this morning is alert and oriented x3, but is unable to help with medical history. He denies any liver disease. He reports he drank quite heavily, but quit a few years ago, he also smoked but quit that about 5 years ago as well. The son reports he is a DNR/DNI and does not want any medications either. He reports on the drive here he was reminding them that he didn't want anything done. In the ED No leukocytosis noted, Platelets noted to be 82,000. BMP WNL, bilirubin 2.8. VS stable, afebrile. Head CT revealed multiple new small areas of subarachnoid hemorrhage scattered over both hemispheres, consistent with tearing of bridging veins. Moderated sized subarachnoid hemorrhage location in the anterior inferior left sylvian cistern. No mass effect noted, no midline shift. Cervical neck CT obtained as well revealing no acute osseous injury. Moderate Pleural effusion noted in L lung. He will be admitted inpatient due to inability to care for himself and frequent falls at home with subsequent subarachnoid hemorrhage. - Discharge Data Discharge Date: 09/09/18 Discharge Disposition: DC/Tfer to SNF 03 Condition: Stable - Discharge Diagnosis/Problem(s) (1) Palliative care status SNOMED Code(s): 128222048 ICD Code: Z51.5 - ENCOUNTER FOR PALLIATIVE CARE Status: Acute Priority: High Current Visit: Yes (2) Subarachnoid hemorrhage SNOMED Code(s): 140084345 ICD Code: I60.9 - NONTRAUMATIC SUBARACHNOID HEMORRHAGE, UNSPECIFIED Status : Acute Current Visit: Yes (3) Falls SNOMED Code(s): 4798354, 637471537 ICD Code: W19.XXXA - UNSPECIFIED FALL, INITIAL ENCOUNTER Status: Acute Current Visit: Yes Qualifiers: Encounter type: subsequent encounter Qualified Code(s): W19.XXXD - Unspecified fall, subsequent encounter (4) Multiple abrasions SNOMED Code(s): 727380544, 134513998 ICD Code: T07.XXXA - UNSPECIFIED MULTIPLE INJURIES, INITIAL ENCOUNTER Status: Resolved Current Visit: No (5) Ascites SNOMED Code(s): 236723284 ICD Code: R18.8 - OTHER ASCITES Status: Chronic Priority: High Current Visit: Yes Qualifiers: Ascites type: due to alcoholic cirrhosis Qualified Code(s): K70.31 - Alcoholic cirrhosis of liver with ascites (6) Hepatic cirrhosis SNOMED Code(s): 77114711 ICD Code: K74.60 - UNSPECIFIED CIRRHOSIS OF LIVER Status: Chronic Current Visit: Yes Qualifiers: Hepatic cirrhosis type: alcoholic cirrhosis (7) Thrombocytopenia SNOMED Code(s): 897597851 ICD Code: D69.6 - THROMBOCYTOPENIA, UNSPECIFIED Status: Chronic Current Visit: Yes (8) Dementia SNOMED Code(s): 47462042 ICD Code: F03.90 - UNSPECIFIED DEMENTIA WITHOUT BEHAVIORAL DISTURBANCE Status: Chronic Priority: High Current Visit: Yes Qualifiers: Dementia type: associated with alcoholism Dementia behavioral disturbance: without behavioral disturbance Qualified Code(s): F10.27 - Alcohol dependence with alcohol-induced persisting dementia (9) Pleural cavity effusion SNOMED Code(s): 87087416 ICD Code: J90 - PLEURAL EFFUSION, NOT ELSEWHERE CLASSIFIED Status: Chronic Current Visit: Yes - Patient Summary/Data Consults: Consultations 08/16/18 08:21 Consult to Occupational Therapy [OT Evaluation and Treatment] [CONS] Routine PT Evaluation and Treatment [CONS] Routine - Discharge Plan *PRESCRIPTION DRUG MONITORING PROGRAM REVIEWED*: Not Applicable *COPY OF PRESCRIPTION DRUG MONITORING REPORT IN PATIENT TIM: Not Applicable Home Medications: Home Meds Acetaminophen [Tylenol] 650 mg PO Q4H PRN tablet 05/24/19 [Rx] Forms: ED Department Discharge Referrals: PCP,None [Primary Care Provider] - - Discharge Summary/Plan Comment DC Time >30 min.: No Discharge Summary/Plan Comment: Admitting DIagnoses: Falls Subarachnoid hemorrhage Discharge Diagnoses: Palliative Care Dementia Hx subarachnoid hemorrhage Other PMH Cirrhosis Thrombocytopenia Isaiah was admitted secondary to new subarachnoid hemorrhage after a fall at home. He was admitted, after discussion with him and his son, Pérez, they wanted palliative measures. Pérez did not feel safe taking him home due to falls and not being able to stay home with him 24 hours a day. He has been in our facility awaiting Medicaid acceptance and placement in a SNF. He has been up ambulating with walker with nurses four times daily. He is alert, but disoriented to time and place. He has not taken any medications during his stay. He is to be transferred to [facility] today pending acceptance. - General Info Date of Service: 09/09/18 Admission Dx/Problem (Free Text: Falls, subarachnoid hemorrhage Subjective Update: Doing well this morning, lying in bed. Denies pain. No other concerns. Functional Status: Reports: Pain Controlled, Tolerating Diet, Ambulating, Urinating - Review of Systems General: Reports: No Symptoms. Denies: Fever, Weakness, Fatigue Pulmonary: Reports: No Symptoms. Denies: Shortness of Breath Cardiovascular: Reports: No Symptoms. Denies: Chest Pain Gastrointestinal: Reports: No Symptoms. Denies: Abdominal Pain, Nausea, Vomiting Genitourinary: Reports: No Symptoms. Denies: Dysuria, Frequency, Burning Musculoskeletal: Reports: No Symptoms. Denies: Neck Pain Skin: Reports: No Symptoms Neurological: Reports: No Symptoms Psychiatric: Reports: No Symptoms - Patient Data Vitals - Most Recent: Last Vital Signs Temp 97.3 F 09/09/18 08:00 Pulse 86 09/09/18 08:00 Resp 16 09/09/18 08:00 BP 108/57 L 09/09/18 08:00 Pulse Ox 92 L 09/09/18 08:00 Weight - Most Recent: 88.995 kg I&O - Last 24 hours: Intake & Output 09/08/18 09/09/18 09/09/18 22:59 06:59 14:59 Intake Total 650 860 Output Total 420 Balance 650 440 Med Orders - Current: Current Medications Acetaminophen (Tylenol) 650 mg PO Q4H PRN PRN Reason: Pain (mild 1-3) Ondansetron HCl (Zofran) 4 mg IVPUSH Q4H PRN PRN Reason: Nausea Sodium Chloride (Saline Flush) 10 ml FLUSH ASDIRECTED PRN PRN Reason: Keep Vein Open Last Admin: 08/16/18 01:55 Dose: 10 ml Sodium Chloride (Saline Flush) 2.5 ml FLUSH ASDIRECTED PRN PRN Reason: Keep Vein Open Last Admin: 08/16/18 01:55 Dose: 2.5 ml - Exam General: Reports: Alert, Cooperative, No Acute Distress. Denies: Oriented Lungs: Reports: Clear to Auscultation, Normal Respiratory Effort. Denies: Crackles, Rhonchi Cardiovascular: Reports: Regular Rate, Regular Rhythm GI/Abdominal Exam: Normal Bowel Sounds, Soft, Non-Tender, No Distention, Other ( mild ascites) Back Exam: Reports: Normal Inspection, Full Range of Motion Extremities: Normal Inspection, Normal Range of Motion, Non-Tender, No Pedal Edema Skin: Reports: Warm, Dry Wound/Incisions: Reports: Healing Well. Denies: Erythema Neurological: Reports: No New Focal Deficit Psy/Mental Status: Reports: Alert, Normal Affect, Normal Mood
== END 2018-09-09 10:44 | DRG 86 ==
LOC: MW.ED 23:28 → MW.MS 08-16 01:17 → OBSVTOIN 08-16 10:04 → MW.MS 08-17 10:38
PROVIDERS: ADMIT Internal Medicine; ATTEND Internal Medicine
DX: S06.6X0A Traumatic subarachnoid hemorrhage without loss of consciousness, initial encounter (principal); Y92.003 Bedroom of unspecified non-institutional (private) residence as the place of occurrence of the external cause; J90 Pleural effusion, not elsewhere classified; W18.30XA Fall on same level, unspecified, initial encounter; T07.XXXA Unspecified multiple injuries, initial encounter; K74.60 Unspecified cirrhosis of liver; R18.8 Other ascites; R29.6 Repeated falls; G30.9 Alzheimer's disease, unspecified; T14.8XXA Other injury of unspecified body region, initial encounter; K70.31 Alcoholic cirrhosis of liver with ascites; D69.6 Thrombocytopenia, unspecified; F02.80 Dementia in other diseases classified elsewhere, unspecified severity, without behavioral disturbance, psychotic disturbance, mood disturbance, and anxiety; M54.2 Cervicalgia; Z87.891 Personal history of nicotine dependence; Z88.6 Allergy status to analgesic agent; R55 Syncope and collapse; Z66 Do not resuscitate; Z51.5 Encounter for palliative care; Z95.0 Presence of cardiac pacemaker
CPT/HCPCS: 36415; 70450; 70450-26; 71045; 71045-26; 72125; 72125-26; 80048; 80053; 81003; 84484; 85025; 85610; 93005; 97110-GP; 97161-GP; 97165-GO; 97530-GP; 99285; 99285-25